=== PATIENT | male | born 1950 ===

== ENCOUNTER 2017-12-17 10:54 | Inpatient (IN) | payer OTHER ==
[2017-12-17 11:06] VITALS: BMI 22.4
[2017-12-17 13:52] LABS: ALB/GLOB RATIO 0.9 (1.0-2.1); ALBUMIN 4.2 g/dL (3.5-5.0); ALT/SGPT 26 U/L (21-72); AST/SGOT 16 U/L (17-59); BLOOD UREA NITROGEN 14 mg/dL (9-20); CALCIUM 9.7 mg/dl (8.6-10.4); GFR AFRICAN-AMERICAN > 60; GFR NON-AFRICAN AMERICAN > 60
[2017-12-17 13:53] LABS: BASO % 0.7 % (0.0-2.0); EOS # 0.2 K/uL (0.0-0.7); EOS % 2.9 % (0.0-4.0); LYMPH # 1.5 K/uL (1.0-4.3); LYMPH % 27.8 % (20.0-40.0); MEAN CORPUSCULAR HEMOGLOBIN 27.1 pg (27.0-31.0); MEAN CORPUSCULAR HGB CONC 33.8 g/dL (33.0-37.0); MEAN PLATELET VOLUME 8.7 fL (7.2-11.7); MONO # 0.5 K/uL (0.0-0.8); MONO % 9.8 % (0.0-10.0); NEUT # 3.3 K/uL (1.8-7.0); NEUT % 58.8 % (50.0-75.0); RBC 5.41 Mil/uL (4.40-5.90); RED CELL DISTRIBUTION WIDTH 14.8 % (11.5-14.5); WHITE BLOOD COUNT 5.6 K/uL (4.8-10.8)
[2017-12-17 13:55] LABS: HEMOGLOBIN 14.6 g/dL (12.0-18.0)
--- NOTE | 2017-12-17 14:26 | CT ---
PROCEDURE: CT HEAD WITHOUT CONTRAST. HISTORY: left arm intermittent weakness, BLE weakness COMPARISON: None available. TECHNIQUE: Axial computed tomography images were obtained through the head/brain without intravenous contrast. Radiation dose: Total exam DLP = 899.48 mGy-cm. This CT exam was performed using one or more of the following dose reduction techniques: Automated exposure control, adjustment of the mA and/or kV according to patient size, and/or use of iterative reconstruction technique. FINDINGS: HEMORRHAGE: No intracranial hemorrhage. BRAIN: No mass effect or edema. There is 6.9 millimeter focal heterogeneous low attenuation at the right basal ganglia coronal radiata image 17 series 2 may represent subacute lacunar infarction. Few bilateral small less than 5 millimeter low-attenuation foci may also represent old lacunar infarction versus chronic microvascular ischemic disease. VENTRICLES: Unremarkable. No hydrocephalus. CALVARIUM: Unremarkable. PARANASAL SINUSES: Mild mucosal thickening in the ethmoid and sphenoid sinuses noted. MASTOID AIR CELLS: Unremarkable as visualized. No inflammatory changes. OTHER FINDINGS: None. IMPRESSION: No evidence of acute intracranial hemorrhage mass effect or midline shift. 7 millimeter heterogeneous low attenuation at the right basal ganglia coronal radiata may represent subacute lacunar infarction. If clinically warranted further assessment by MRI diffusion-weighted images may be obtained.
--- NOTE | 2017-12-17 14:48 | C.PDOC ---
History Of Present Illness 67-year-old male, presents to the emergency department with complaints of swelling to the right fourth toe. Patient was seen by [facility] Dr Yang, who prescribed a cream that patient has been using with relief. The last foot xray was done 1 weeks ago. Secondary complaint is trouble holding onto things with left hand. Patient states he keeps dropping objects. Patient also c/o b/l LE weakness while walking. Denies headache/injury, nausea/vomiting, or any other associate symptoms. No other complaints at this time. Time Seen by Provider: 12/17/17 12:25 Chief Complaint (Nursing): Lower Extremity Problem/Injury History Per: Patient History/Exam Limitations: no limitations Onset/Duration Of Symptoms: Days Current Symptoms Are (Timing): Still Present Past Medical History Reviewed: Historical Data, Nursing Documentation, Vital Signs Vital Signs: Last Vital Signs Temp 98.1 F 12/17/17 11:05 Pulse 66 12/17/17 14:54 Resp 18 12/17/17 14:54 BP 156/64 H 12/17/17 14:54 Pulse Ox 99 12/17/17 16:05 - Medical History PMH: Diabetes, HTN Family History: States: No Known Family Hx - Social History Hx Tobacco Use: Yes Hx Alcohol Use: No Hx Substance Use: No Review Of Systems Except As Marked, All Systems Reviewed And Found Negative. Constitutional: Negative for: Fever, Chills, Weakness Cardiovascular: Negative for: Chest Pain, Palpitations Respiratory: Negative for: Cough, Shortness of Breath Gastrointestinal: Negative for: Nausea, Vomiting Musculoskeletal: Positive for: Other (Right 4th toe swollen. ) Skin: Negative for: Rash Neurological: Negative for: Weakness, Numbness, Headache, Dizziness Physical Exam - Physical Exam Appears: Well, Non-toxic, No Acute Distress Skin: Normal Color, Warm, Dry, No Rash Head: Atraumatic, Normacephalic Eye(s): bilateral: Normal Inspection, PERRL, EOMI Nose: Normal Oral Mucosa: Moist Lips: Normal Appearing Neck: Normal ROM Chest: Symmetrical Cardiovascular: Rhythm Regular, No Murmur Respiratory: Normal Breath Sounds, No Accessory Muscle Use Extremity: Normal ROM, No Tenderness, No Deformity, No Swelling, Other (right 4th toe with swelling, black crust on the bottom of the distal phalanx of the 4th digit, no drainage.) Neurological/Psych: Oriented x3, Normal Speech, Normal Cognition, Normal Cranial Nerves, No Cerebellar Signs, Normal Motor, Normal Sensation, Normal Reflexes, Other (5/5 strength B/L. Patient appears to be dropping his credit card while holding w/ left hand.) ED Course And Treatment - Laboratory Results Result Diagrams: 12/17/17 13:20 12/17/17 13:20 O2 Sat by Pulse Oximetry: 99 - Radiology CXR: Interpreted by [place] CXR Interpretation: Yes: No Acute Disease - CT Scan/US Head CT Other Rad Studies (CT/US): Read By Radiologist, Radiology Report Reviewed CT/US Interpretation: Accession No. : [id number]. Patient Name / ID : SEDA SIERRA / [id number]. Exam Date : 12/17/2017 13:53:22 ( Approved ). Study Comment : Sex / Age : M / 67Y. Creator : Fernando Tran MD. Dictator : Fernando Tran MD. Magazine Journalist : Sales Supervisor : Fernando Tran MD. Approver2 : Report Date : 12/17/2017 14:24:41. My Comment : . PROCEDURE: CT HEAD WITHOUT CONTRAST. HISTORY: left arm intermittent weakness, BLE weakness. COMPARISON: None available. TECHNIQUE: Axial computed tomography images were obtained through the head/brain without intravenous contrast. Radiation dose: Total exam DLP = 899.48 mGy-cm. This CT exam was performed using one or more of the following dose reduction techniques: Automated exposure control, adjustment of the mA and/or kV according to patient size, and/ or use of iterative reconstruction technique. FINDINGS: HEMORRHAGE: No intracranial hemorrhage. BRAIN: No mass effect or edema. There is 6.9 millimeter focal heterogeneous low attenuation at the right basal ganglia coronal radiata image 17 series 2 may represent subacute lacunar infarction. Few bilateral small less than 5 millimeter low-attenuation foci may also represent old lacunar infarction versus chronic microvascular ischemic disease. VENTRICLES: Unremarkable. No hydrocephalus. CALVARIUM: Unremarkable. PARANASAL SINUSES: Mild mucosal thickening in the ethmoid and sphenoid sinuses noted. MASTOID AIR CELLS: Unremarkable as visualized. No inflammatory changes. OTHER FINDINGS: None. IMPRESSION: No evidence of acute intracranial hemorrhage mass effect or midline shift. 7 millimeter heterogeneous low attenuation at the right basal ganglia coronal radiata may represent subacute lacunar infarction. If clinically warranted further assessment by MRI diffusion-weighted images may be obtained. Progress Note: Case was d/w who accepted patient to his service for observation. Medical Decision Making Medical Decision Making: Plan: * CT Head * EKG * Labs * Chest X-Ray * Aspirin * Blood Cultures * UA * Reassess and Disposition Case discussed w/ Dr Saul Escobar, states to admit patient under his service for observation Disposition - Disposition Disposition: HOSPITALIZED Disposition Time: 15:52 Condition: FAIR - Clinical Impression Clinical Impression: Diabetic foot ulcer, Hand numbness, Leg weakness, bilateral - Scribe Statement The provider has reviewed the documentation as recorded by the Scribe (Ruslan Car) All medical record entries made by the Scribe were at my direction and personally dictated by me. I have reviewed the chart and agree that the record accurately reflects my personal performance of the history, physical exam, medical decision making, and the department course for this patient. I have also personally directed, reviewed, and agree with the discharge instructions and disposition.
--- NOTE | 2017-12-17 15:17 | RAD ---
PROCEDURE: CHEST RADIOGRAPH, 1 VIEW HISTORY: admission COMPARISON: None available. FINDINGS: LUNGS: No evidence of focal infiltrate or consolidation in the lungs . PLEURA: No pneumothorax or pleural fluid seen. CARDIOVASCULAR: Normal. OSSEOUS STRUCTURES: No significant abnormalities. VISUALIZED UPPER ABDOMEN: Normal. OTHER FINDINGS: None. IMPRESSION: No active disease.
[2017-12-17 21:31] LABS: URINE BACTERIA RARE (<OCC); URINE BILIRUBIN NEGATIVE (NEGATIVE); URINE BLOOD NEGATIVE (NEGATIVE); URINE CLARITY Clear (Clear); URINE COLOR Yellow (YELLOW); URINE GLUCOSE (UA) 2+ mg/dL (Normal); URINE LEUKOCYTE ESTERASE NEG Leu/uL (Negative); URINE NITRATE NEGATIVE (NEGATIVE); URINE PROTEIN 2+ mg/dL (NEGATIVE); URINE UROBILINOGEN NORMAL mg/dL (0.2-1.0)
--- NOTE | 2017-12-17 21:44 | CP.PCM.HP ---
Past Patient History - Past Medical History & Family History Past Medical History?: Yes - Past Social History Smoking Status: Heavy Smoker > 10 Cigarettes Daily - CARDIAC Hx Hypertension: Yes - HEENT Hx HEENT Problems: Yes Hx Cataracts: Yes (left cataract sx 2013) - ENDOCRINE/METABOLIC Hx Endocrine Disorders: Yes Hx Diabetes Mellitus Type 2: Yes - MUSCULOSKELETAL/RHEUMATOLOGICAL Hx Falls: No - PSYCHIATRIC Hx Substance Use: No - SURGICAL HISTORY Hx Surgeries: Yes (L eye cataract surgery) - ANESTHESIA Hx Anesthesia: Yes Hx Anesthesia Reactions: No Hx Malignant Hyperthermia: No Meds Allergies/Adverse Reactions: Allergies Allergy/AdvReac Type Severity Reaction Status Date / Time No Known Allergies Allergy Verified 12/17/17 11:04 Results - Vital Signs Recent Vital Signs: Last Vital Signs Temp 97.6 F 12/17/17 20:49 Pulse 84 12/17/17 20:49 Resp 17 12/17/17 20:49 BP 150/64 12/17/17 20:49 Pulse Ox 97 12/17/17 20:49 - Labs Result Diagrams: 12/17/17 13:20 12/17/17 13:20 Labs: Laboratory Results - last 24 hr 12/17/17 12/17/17 12/17/17 13:20 13:20 21:17 WBC 5.6 RBC 5.41 Hgb 14.6 D Hct 43.3 MCV 80.0 D MCH 27.1 MCHC 33.8 RDW 14.8 H Plt Count 315 MPV 8.7 Neut % (Auto) 58.8 Lymph % (Auto) 27.8 [place] % (Auto) 9.8 Eos % (Auto) 2.9 Baso % (Auto) 0.7 Neut # (Auto) 3.3 Lymph # (Auto) 1.5 [place] # (Auto) 0.5 Eos # (Auto) 0.2 Baso # (Auto) 0.0 Sodium 136 Potassium 4.1 Chloride 95 L Carbon Dioxide 27 Anion Gap 18 BUN 14 Creatinine 0.7 L Est GFR ( Amer) > 60 Est GFR (Non-Af Amer) > 60 Random Glucose 189 H Calcium 9.7 Total Bilirubin 0.8 AST 16 L ALT 26 Alkaline Phosphatase 52 Total Protein 8.8 H Albumin 4.2 Globulin 4.6 H Albumin/Globulin Ratio 0.9 L Urine Color Yellow Urine Clarity Clear Urine pH 6.0 Ur Specific [place] 1.013 Urine Protein 2+ H Urine Glucose (UA) 2+ H Urine Ketones Negative Urine Blood Negative Urine Nitrate Negative Urine Bilirubin Negative Urine Urobilinogen Normal Ur Leukocyte Esterase Neg Urine WBC (Auto) 1 Urine RBC (Auto) < 1 Urine Bacteria Rare
[2017-12-17] MEDS: Piperacill/Tazo 3.375gm in Dex 3.375 GM/50 ML BAG IVPB SCH (22:01)
[2017-12-17] MEDS: (Novolog) Insulin Aspart, Recombinant 100 u/ml 10 ml vial SC SCH (22:20)
[2017-12-17] MEDS: Vancomycin 1 gm/NS 200 ml 1 GM/200 ML BAG IVPB SCH (22:21)
[2017-12-18] MEDS: Piperacill/Tazo 3.375gm in Dex 3.375 GM/50 ML BAG IVPB SCH ×4 (05:17→20:58)
--- NOTE | 2017-12-18 05:56 | CP.PCM.CON ---
History of Present Illness - History of Present Illness History of Present Illness: Vascular Surgery Dr. Mcadams 67 y/o M w/ PMHx of HTN, DM2, and diabetic neuropathy presents to the ED c/o R foot wound and weakness. Pt states wound began ~1wk ago after a blister formed on his foot from poor shoes. Pt reports intermittent numbness in B/L feet. Pt sees a inspector scales regularly. Pt admits to Hx of diabetic foot ulcers w/ the last occurring ~1yr ago. Secondarily, pt reports sudden weakness of B/L LE and LUE x2days. Pt has never before had weakness. Pt states that he was prompted to come in for evaluation when weakness continued and worsened. Pt denies WISE, CP, SOB, F/C, N/V, D/C. PMHx: see above, cataracts Meds: reviewed in chart NKDA PSHx: cataract SHx: (+)tobacco use. prior EtOH use. denies drug use FHx: noncontributory Review of Systems - Review of Systems All systems: reviewed and no additional remarkable complaints except (see HPI) Past Patient History - Past Medical History & Family History Past Medical History?: Yes - Past Social History Smoking Status: Light Smoker < 10 Cigarettes Daily - CARDIAC Hx Hypertension: Yes - HEENT Hx HEENT Problems: Yes Hx Cataracts: Yes (left cataract sx 2013) - ENDOCRINE/METABOLIC Hx Endocrine Disorders: Yes Hx Diabetes Mellitus Type 2: Yes - MUSCULOSKELETAL/RHEUMATOLOGICAL Hx Falls: No - PSYCHIATRIC Hx Substance Use: No - SURGICAL HISTORY Hx Surgeries: Yes (L eye cataract surgery) - ANESTHESIA Hx Anesthesia: Yes Hx Anesthesia Reactions: No Hx Malignant Hyperthermia: No Meds Allergies/Adverse Reactions: Allergies Allergy/AdvReac Type Severity Reaction Status Date / Time No Known Allergies Allergy Verified 12/17/17 11:04 - Medications Medications: Current Medications Aspirin (Aspirin) 325 mg PO DAILY [facility] Enoxaparin Sodium (Lovenox) 40 mg SC DAILY [facility] Vancomycin/Sodium Chloride (Vancomycin 1 Gm/Ns 200 Ml) 1 gm in 200 mls @ 166.7 mls/hr IVPB Q24H [facility] Stop: 12/22/17 21:46 Last Admin: 12/17/17 22:21 Dose: 166.7 mls/hr Piperacillin Sod/Tazobactam Sod (Zosyn 3.375 Gm Iv Premix) 3.375 gm in 50 mls @ 200 mls/hr IVPB Q6H [facility] Last Admin: 12/18/17 05:17 Dose: 200 mls/hr Insulin Aspart (Novolog) 0 unit SC ACHS [facility] PRN Reason: Protocol Last Admin: 12/17/17 22:20 Dose: Not Given Lisinopril (Zestril) 10 mg PO DAILY [facility] Metformin HCl (Glucophage) 1,000 mg PO BID [facility] Pantoprazole Sodium (Protonix Ec Tab) 40 mg PO DAILY [facility] Rosuvastatin Calcium (Crestor) 10 mg PO HS [facility] Last Admin: 12/17/17 22:32 Dose: 10 mg Physical Exam - Constitutional Appears: Non-toxic, No Acute Distress - Head Exam Head Exam: NORMAL INSPECTION - Eye Exam Eye Exam: Normal appearance - ENT Exam ENT Exam: Mucous Membranes Moist - Respiratory Exam Respiratory Exam: NORMAL BREATHING PATTERN. absent: Accessory Muscle Use, Respiratory Distress - Cardiovascular Exam Cardiovascular Exam: REGULAR RHYTHM. absent: Bradycardia, Tachycardia - GI/Abdominal Exam GI & Abdominal Exam: Soft. absent: Distended - Extremities Exam Extremities exam: Positive for: normal capillary refill, pedal pulses present. Negative for: pedal edema, tenderness Additional comments: adair eschar present on plantar aspect of 4th metatarsal. - Neurological Exam Neurological exam: Alert, Oriented x3 - Psychiatric Exam Psychiatric exam: Normal Affect, Normal Mood - Skin Skin Exam: Dry, Intact, Normal Color, Warm Results - Vital Signs Recent Vital Signs: Last Vital Signs Temp 97.9 F 12/18/17 01:46 Pulse 69 12/18/17 01:46 Resp 20 12/18/17 01:46 BP 144/77 12/18/17 01:46 Pulse Ox 98 12/18/17 01:46 - Labs Result Diagrams: 12/17/17 13:20 12/17/17 13:20 Labs: Laboratory Results - last 24 hr 12/17/17 12/17/17 12/17/17 13:20 13:20 21:17 WBC 5.6 RBC 5.41 Hgb 14.6 D Hct 43.3 MCV 80.0 D MCH 27.1 MCHC 33.8 RDW 14.8 H Plt Count 315 MPV 8.7 Neut % (Auto) 58.8 Lymph % (Auto) 27.8 [place] % (Auto) 9.8 Eos % (Auto) 2.9 Baso % (Auto) 0.7 Neut # (Auto) 3.3 Lymph # (Auto) 1.5 [place] # (Auto) 0.5 Eos # (Auto) 0.2 Baso # (Auto) 0.0 Sodium 136 Potassium 4.1 Chloride 95 L Carbon Dioxide 27 Anion Gap 18 BUN 14 Creatinine 0.7 L Est GFR ( Amer) > 60 Est GFR (Non-Af Amer) > 60 POC Glucose (mg/dL) Random Glucose 189 H Calcium 9.7 Total Bilirubin 0.8 AST 16 L ALT 26 Alkaline Phosphatase 52 Total Protein 8.8 H Albumin 4.2 Globulin 4.6 H Albumin/Globulin Ratio 0.9 L Urine Color Yellow Urine Clarity Clear Urine pH 6.0 Ur Specific [place] 1.013 Urine Protein 2+ H Urine Glucose (UA) 2+ H Urine Ketones Negative Urine Blood Negative Urine Nitrate Negative Urine Bilirubin Negative Urine Urobilinogen Normal Ur Leukocyte Esterase Neg Urine WBC (Auto) 1 Urine RBC (Auto) < 1 Urine Bacteria Rare 12/17/17 22:10 WBC RBC Hgb Hct MCV MCH MCHC RDW Plt Count MPV Neut % (Auto) Lymph % (Auto) [place] % (Auto) Eos % (Auto) Baso % (Auto) Neut # (Auto) Lymph # (Auto) [place] # (Auto) Eos # (Auto) Baso # (Auto) Sodium Potassium Chloride Carbon Dioxide Anion Gap BUN Creatinine Est GFR ( Amer) Est GFR (Non-Af Amer) POC Glucose (mg/dL) 246 H Random Glucose Calcium Total Bilirubin AST ALT Alkaline Phosphatase Total Protein Albumin Globulin Albumin/Globulin Ratio Urine Color Urine Clarity Urine pH Ur Specific [place] Urine Protein Urine Glucose (UA) Urine Ketones Urine Blood Urine Nitrate Urine Bilirubin Urine Urobilinogen Ur Leukocyte Esterase Urine WBC (Auto) Urine RBC (Auto) Urine Bacteria Assessment & Plan - Assessment and Plan (Free Text) Assessment: 67 y/o M w/ diabetic foot wound and sudden-onset weakness - Head CT: possible lacunar infarct - f/u MRI-Head - recommend podiatry consult - LLE duplex - cont medical management Will discuss w/ Dr. Pema Hillman DO PGY2
--- NOTE | 2017-12-18 06:40 | CP.PCM.CON ---
History of Present Illness - History of Present Illness History of Present Illness: CONSULT DICTATED 1 WEEK Hx LOWER EXTREMITIES WEAKNESS EXAM - LEFT HEMIPARESIS NEW Vs OLD DIABETIC NEUROPATHY MRI/ECHO/CAROTID /LABS ASA/STATIN/ARB &DM CONTROL PT Past Patient History - Past Medical History & Family History Past Medical History?: Yes - Past Social History Smoking Status: Light Smoker < 10 Cigarettes Daily - CARDIAC Hx Hypertension: Yes - HEENT Hx HEENT Problems: Yes Hx Cataracts: Yes (left cataract sx 2013) - ENDOCRINE/METABOLIC Hx Endocrine Disorders: Yes Hx Diabetes Mellitus Type 2: Yes - MUSCULOSKELETAL/RHEUMATOLOGICAL Hx Falls: No - PSYCHIATRIC Hx Substance Use: No - SURGICAL HISTORY Hx Surgeries: Yes (L eye cataract surgery) - ANESTHESIA Hx Anesthesia: Yes Hx Anesthesia Reactions: No Hx Malignant Hyperthermia: No Meds Allergies/Adverse Reactions: Allergies Allergy/AdvReac Type Severity Reaction Status Date / Time No Known Allergies Allergy Verified 12/17/17 11:04 - Medications Medications: Current Medications Aspirin (Aspirin) 325 mg PO DAILY [facility] Aspirin (Ecotrin) 81 mg PO DAILY [facility] Enoxaparin Sodium (Lovenox) 40 mg SC DAILY [facility] Vancomycin/Sodium Chloride (Vancomycin 1 Gm/Ns 200 Ml) 1 gm in 200 mls @ 166.7 mls/hr IVPB Q24H [facility] Stop: 12/22/17 21:46 Last Admin: 12/17/17 22:21 Dose: 166.7 mls/hr Piperacillin Sod/Tazobactam Sod (Zosyn 3.375 Gm Iv Premix) 3.375 gm in 50 mls @ 200 mls/hr IVPB Q6H [facility] Last Admin: 12/18/17 05:17 Dose: 200 mls/hr Insulin Aspart (Novolog) 0 unit SC ACHS [facility] PRN Reason: Protocol Last Admin: 12/17/17 22:20 Dose: Not Given Lisinopril (Zestril) 10 mg PO DAILY [facility] Metformin HCl (Glucophage) 1,000 mg PO BID [facility] Pantoprazole Sodium (Protonix Ec Tab) 40 mg PO DAILY [facility] Rosuvastatin Calcium (Crestor) 10 mg PO HS [facility] Last Admin: 12/17/17 22:32 Dose: 10 mg Results - Vital Signs Recent Vital Signs: Last Vital Signs Temp 97.9 F 12/18/17 01:46 Pulse 69 12/18/17 01:46 Resp 20 12/18/17 01:46 BP 144/77 12/18/17 01:46 Pulse Ox 98 12/18/17 01:46 - Labs Result Diagrams: 12/17/17 13:20 12/17/17 13:20 Labs: Laboratory Results - last 24 hr 12/17/17 12/17/17 12/17/17 13:20 13:20 21:17 WBC 5.6 RBC 5.41 Hgb 14.6 D Hct 43.3 MCV 80.0 D MCH 27.1 MCHC 33.8 RDW 14.8 H Plt Count 315 MPV 8.7 Neut % (Auto) 58.8 Lymph % (Auto) 27.8 [place] % (Auto) 9.8 Eos % (Auto) 2.9 Baso % (Auto) 0.7 Neut # (Auto) 3.3 Lymph # (Auto) 1.5 [place] # (Auto) 0.5 Eos # (Auto) 0.2 Baso # (Auto) 0.0 Sodium 136 Potassium 4.1 Chloride 95 L Carbon Dioxide 27 Anion Gap 18 BUN 14 Creatinine 0.7 L Est GFR ( Amer) > 60 Est GFR (Non-Af Amer) > 60 POC Glucose (mg/dL) Random Glucose 189 H Calcium 9.7 Total Bilirubin 0.8 AST 16 L ALT 26 Alkaline Phosphatase 52 Total Protein 8.8 H Albumin 4.2 Globulin 4.6 H Albumin/Globulin Ratio 0.9 L Urine Color Yellow Urine Clarity Clear Urine pH 6.0 Ur Specific [place] 1.013 Urine Protein 2+ H Urine Glucose (UA) 2+ H Urine Ketones Negative Urine Blood Negative Urine Nitrate Negative Urine Bilirubin Negative Urine Urobilinogen Normal Ur Leukocyte Esterase Neg Urine WBC (Auto) 1 Urine RBC (Auto) < 1 Urine Bacteria Rare 12/17/17 22:10 WBC RBC Hgb Hct MCV MCH MCHC RDW Plt Count MPV Neut % (Auto) Lymph % (Auto) [place] % (Auto) Eos % (Auto) Baso % (Auto) Neut # (Auto) Lymph # (Auto) [place] # (Auto) Eos # (Auto) Baso # (Auto) Sodium Potassium Chloride Carbon Dioxide Anion Gap BUN Creatinine Est GFR ( Amer) Est GFR (Non-Af Amer) POC Glucose (mg/dL) 246 H Random Glucose Calcium Total Bilirubin AST ALT Alkaline Phosphatase Total Protein Albumin Globulin Albumin/Globulin Ratio Urine Color Urine Clarity Urine pH Ur Specific [place] Urine Protein Urine Glucose (UA) Urine Ketones Urine Blood Urine Nitrate Urine Bilirubin Urine Urobilinogen Ur Leukocyte Esterase Urine WBC (Auto) Urine RBC (Auto) Urine Bacteria
[2017-12-18 07:56] LABS: FREE T4 1.19 ng/dL (0.78-2.19)
[2017-12-18] MEDS: (Novolog) Insulin Aspart, Recombinant 100 u/ml 10 ml vial SC SCH ×4 (08:17→22:09)
[2017-12-18 09:14] LABS: FOLATE 10.6 ng/mL
[2017-12-18] MEDS: Enoxaparin 40 mg Syringe SC SCH (09:47)
[2017-12-18] MEDS ORDERED: Pantoprazole 40 mg EC Tab PO SCH (10:00)
--- NOTE | 2017-12-18 10:36 | CON ---
DATE: 12/17/2017 REASON FOR CONSULTATION: Transient ischemic attack. CHIEF COMPLAINT: The patient was brought into [facility] with history of 1-week lower extremity weakness. From neurological point of view, I was called in to evaluate his weakness. HISTORY OF PRESENT ILLNESS: Mr. Jesus Gill is a 67-year-old right-handed Tajik-speaking male presenting with about a week history of lower extremity weakness. He could not able to quantify one is more than the other. He has been seeing the foot doctor for his diabetic related peripheral vascular disease. He denies any weakness of his arm. No history of neck pain. No history of back pain. No history of headache. No history of visual or bulbar dysfunction. He was admitted 5 years ago for similar complaints in the past. Lately, he has been taking medications regularly to control his diabetes, high blood pressure, and cholesterol. PAST MEDICAL HISTORY: Diabetes mellitus, hypertension. PERSONAL HISTORY: He smokes. No history of alcohol use. ALLERGIES: NO KNOWN ALLERGIES. REVIEW OF SYSTEMS: A 12-point system being reviewed. From neuro, new weakness of his legs. HOME MEDICATIONS: Crestor, metformin, Lovenox, NovoLog, Protonix, vancomycin, piperacillin. PHYSICAL EXAMINATION: VITAL SIGNS: Blood pressure 144/77, mean artery pressure of 99, respiratory rate 18, temperature 97.9, and pulse rate 69 and regular. NECK: Supple. No carotid bruits. HEART: Sounds regular. CHEST: Fair air entry. EXTREMITIES: No edema in legs. NEUROLOGIC EXAMINATION: MENTAL STATUS EXAMINATION: He is awake, alert, oriented to person, place, and time. Speech is clear. Naming, repetition, fluency, comprehension all within normal. No sign of suicidal ideation. No sign of depression. No sign of confabulation. CRANIAL NERVE EXAMINATION: Visual field intact. Pupils reactive to light. Extraocular movement normal. No nystagmus. No facial sensory deficit. Significant facial asymmetry manifesting as flattening of the left nasolabial fold. Tongue is moist and midline. MOTOR EXAMINATION: On outstretched hand with eyes closed, slightly drift noted on his left upper extremity on eyes closed. No tremor. He could able to lift both lower extremities against gravity, however, similar weakness as arm noted on his left leg to compare with the right leg. Deep tendon reflexes are absent. Plantars are upgoing on his left side; right side, it is downgoing. SENSORY EXAMINATION: No cortical sensory loss. Significant bilateral distal symmetric sensorimotor neuropathy secondary to his underlying diabetes mellitus which is uncontrolled. COORDINATION: Mild [id number] test dysmetria noted on the left side to compare with the right side. The gait is deferred at this time. WORKUP: CT of the head has been reviewed. 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 EKG, normal sinus rhythm. BLOOD WORKUP: WBC 5.6, hemoglobin 14.6, hematocrit 43.3, platelets 315. Sodium 136, potassium of 4.1, chloride 95, bicarbonate 27, BUN 14, creatinine 0.7, GFR more than 60, glucose 246, calcium 9.7, AST 16, ALT 26. Urine shows 2+ proteinuria and glycosuria. CONCLUSION: Mr. Jesus Gill has been presenting with as per neurological examination, 1. Left mild hemiparesis which is secondary to his small vessel ischemic process affecting the right subcortical dysfunction. This is probably new versus old. 2. Bilateral distal symmetric sensorimotor neuropathy. RECOMMENDATIONS: Aspirin 81 mg with angiotensin receptor blockers and statin. The patient should be get out of the bed and physical therapy should be started. Strict diabetic control, blood pressure control had been discussed with the patient. Abstinence from smoking also discussed with the patient. If the patient is stable for next 24-hour period, the patient can be discharged and should have followup visit as an outpatient. Sven Berg MD
--- NOTE | 2017-12-18 10:47 | MRI ---
PROCEDURE: MRI of the brain dated 12/18/2017. HISTORY: NEW ISCHEMIC PROCESS COMPARISON: Comparison made with prior CT scan of the brain dated 12/17/2014. TECHNIQUE: Multiplanar, multisequence MR images of the brain were obtained without intravenous contrast enhancement. FINDINGS: HEMORRHAGE: No acute parenchymal, subarachnoid or extra-axial hemorrhage. No evidence of hemosiderin deposition identified on gradient echo weighted sequence. DWI: Small acute infarct changes seen in the right posterior superior basal ganglia/ coronal radiata junction abutting the posterior margin right lateral ventricular surface. BRAIN PARENCHYMA: Mild chronic periventricular white matter ischemic changes with multiple tiny chronic appearing lacunar type infarcts scattered about the deep and subcortical white matter of both cerebral hemispheres. . Few additional small chronic bilateral basal nuclei lacunar type infarcts are present. Note made of numerous dilated perivascular spaces within both cerebral hemispheres including basal nuclei. Note that such changes have been seen and described in cases of vascular dementia. Clinic correlation recommended. Mild generalized volume loss. VENTRICLES: No obstructive hydrocephalus. CRANIUM: Calvarium appears unremarkable. ORBITS: Changes of bilateral cataract surgery again noted. PARANASAL SINUSES/MASTOIDS: Mild mucosal thickening seen within both maxillary with mild to moderate mucosal thickening in several ethmoid air cells extending superiorly into the ethmoid air complex. Questionable small fluid level versus mucosal thickening right chamber sphenoid sinus. VASCULAR SYSTEM: Skull base flow voids intact. OTHER FINDINGS: None. IMPRESSION: Small acute infarct changes seen in the right posterior superior basal ganglia/ coronal radiata junction abutting the posterior margin right lateral ventricular surface. . Mild chronic periventricular white matter ischemic changes with multiple tiny chronic appearing lacunar type infarcts scattered about the deep and subcortical white matter of both cerebral hemispheres. . Few additional small chronic bilateral basal nuclei lacunar type infarcts are present. No acute intracranial hemorrhage. Mild generalized volume loss. Findings discussed with Dr. Berg at approximately 10:30 a.m. with written down and read back verification.
[2017-12-18 11:56] LABS: BASO # 0.1 K/uL (0.0-0.2); EOS # 0.2 K/uL (0.0-0.7); EOS % 3.5 % (0.0-4.0); LYMPH # 1.4 K/uL (1.0-4.3); LYMPH % 25.5 % (20.0-40.0); MEAN CELL VOLUME 80.3 fL (80.0-94.0); MEAN CORPUSCULAR HEMOGLOBIN 27.3 pg (27.0-31.0); MEAN PLATELET VOLUME 8.4 fL (7.2-11.7); MONO # 0.5 K/uL (0.0-0.8); MONO % 9.4 % (0.0-10.0); NEUT # 3.4 K/uL (1.8-7.0); NEUT % 60.6 % (50.0-75.0); RBC 4.77 Mil/uL (4.40-5.90); RED CELL DISTRIBUTION WIDTH 14.5 % (11.5-14.5); WHITE BLOOD COUNT 5.6 K/uL (4.8-10.8)
[2017-12-18 12:13] LABS: ALBUMIN 3.5 g/dL (3.5-5.0); ALT/SGPT 20 U/L (21-72); AST/SGOT 15 U/L (17-59); BLOOD UREA NITROGEN 15 mg/dL (9-20); CALCIUM 9.1 mg/dl (8.6-10.4); GFR AFRICAN-AMERICAN > 60; GFR NON-AFRICAN AMERICAN > 60
--- NOTE | 2017-12-18 12:54 | CP.PCM.PN ---
Subjective - Date & Time of Evaluation Date of Evaluation: 12/18/17 Time of Evaluation: 12:45 - Subjective Subjective: PROGRESS NOTE ATTENDING: TERRELL ENGL[place] Pt seen and examined at bedside. No acute distress. No events overnight. Pt has minimal pain. Consulting podiatry. No fevers, chills, vomiting, diarrhea Objective - Vital Signs/Intake and Output Vital Signs (last 24 hours): Temp Pulse Resp BP Pulse Ox 97.2 F L 78 20 165/78 H 98 12/18/17 08:04 12/18/17 08:04 12/18/17 08:04 12/18/17 08:04 12/18/17 08:04 - Medications Medications: Current Medications Aspirin (Ecotrin) 81 mg PO DAILY [facility] Last Admin: 12/18/17 09:46 Dose: 81 mg Enoxaparin Sodium (Lovenox) 40 mg SC DAILY [facility] Last Admin: 12/18/17 09:47 Dose: 40 mg Vancomycin/Sodium Chloride (Vancomycin 1 Gm/Ns 200 Ml) 1 gm in 200 mls @ 166.7 mls/hr IVPB Q24H [facility] Stop: 12/22/17 21:46 Last Admin: 12/17/17 22:21 Dose: 166.7 mls/hr Piperacillin Sod/Tazobactam Sod (Zosyn 3.375 Gm Iv Premix) 3.375 gm in 50 mls @ 200 mls/hr IVPB Q6H [facility] Last Admin: 12/18/17 09:49 Dose: 200 mls/hr Insulin Aspart (Novolog) 0 unit SC ACHS [facility] PRN Reason: Protocol Last Admin: 12/18/17 12:17 Dose: 2 unit Lisinopril (Zestril) 10 mg PO DAILY [facility] Last Admin: 12/18/17 09:46 Dose: 10 mg Metformin HCl (Glucophage) 1,000 mg PO BID [facility] Last Admin: 12/18/17 09:46 Dose: 1,000 mg Pantoprazole Sodium (Protonix Ec Tab) 40 mg PO DAILY [facility] Last Admin: 12/18/17 09:46 Dose: 40 mg Rosuvastatin Calcium (Crestor) 10 mg PO HS [facility] Last Admin: 12/17/17 22:32 Dose: 10 mg - Labs Labs: 12/18/17 11:48 12/18/17 11:48 - Constitutional Appears: Non-toxic, No Acute Distress - Head Exam Head Exam: ATRAUMATIC, NORMAL INSPECTION, NORMOCEPHALIC - Eye Exam Eye Exam: EOMI - ENT Exam ENT Exam: Mucous Membranes Moist - Neck Exam Neck Exam: Full ROM, Normal Inspection - Respiratory Exam Respiratory Exam: NORMAL BREATHING PATTERN. absent: Respiratory Distress - Cardiovascular Exam Cardiovascular Exam: +S1, +S2 - GI/Abdominal Exam GI & Abdominal Exam: Soft, Normal Bowel Sounds. absent: Tenderness - Extremities Exam Extremities Exam: Tenderness. absent: Full ROM, Normal Inspection Additional comments: some tenderness and swelling digit - Neurological Exam Neurological Exam: Alert, Awake, Oriented x3 - Psychiatric Exam Psychiatric exam: Normal Affect, Normal Mood - Skin Skin Exam: Dry, Intact, Normal Color, Warm Assessment and Plan - Assessment and Plan (Free Text) Assessment: This is a 67 yo male with 1. R/O diabetic foot ulcer -asa 81 daily -arterial duplex pending -venous duplex pending- -carotid duplex pending -continue IV vanco -continue IV zosyn 2. hx of HLD -continue crestor 3. hx of DM -continue metformin -continue lisinopril -continue ISS 4. GI/DVT ppx -lovenox -protonix dw DR eng[place]
--- NOTE | 2017-12-18 13:38 | CP.PCM.CON ---
History of Present Illness - History of Present Illness History of Present Illness: Podiatry Consult note for Dr. Gordon 67 year old male PMHx including HTN, DM2, and diabetic neuropathy presents to the was seen at bedside with attending, Dr. Gordon for foot wounds. 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 He currently denies any pain to his feet. He denies any n/v/f/c/sob/cp. Past Patient History - Past Medical History & Family History Past Medical History?: Yes - Past Social History Smoking Status: Light Smoker < 10 Cigarettes Daily - CARDIAC Hx Hypertension: Yes - HEENT Hx HEENT Problems: Yes Hx Cataracts: Yes (left cataract sx 2013) - ENDOCRINE/METABOLIC Hx Endocrine Disorders: Yes Hx Diabetes Mellitus Type 2: Yes - MUSCULOSKELETAL/RHEUMATOLOGICAL Hx Falls: No - PSYCHIATRIC Hx Substance Use: No - SURGICAL HISTORY Hx Surgeries: Yes (L eye cataract surgery) - ANESTHESIA Hx Anesthesia: Yes Hx Anesthesia Reactions: No Hx Malignant Hyperthermia: No Meds Allergies/Adverse Reactions: Allergies Allergy/AdvReac Type Severity Reaction Status Date / Time No Known Allergies Allergy Verified 12/17/17 11:04 - Medications Medications: Current Medications Aspirin (Ecotrin) 81 mg PO DAILY [facility] Last Admin: 12/18/17 09:46 Dose: 81 mg Enoxaparin Sodium (Lovenox) 40 mg SC DAILY [facility] Last Admin: 12/18/17 09:47 Dose: 40 mg Vancomycin/Sodium Chloride (Vancomycin 1 Gm/Ns 200 Ml) 1 gm in 200 mls @ 166.7 mls/hr IVPB Q24H [facility] Stop: 12/22/17 21:46 Last Admin: 12/17/17 22:21 Dose: 166.7 mls/hr Piperacillin Sod/Tazobactam Sod (Zosyn 3.375 Gm Iv Premix) 3.375 gm in 50 mls @ 200 mls/hr IVPB Q6H [facility] Last Admin: 12/18/17 09:49 Dose: 200 mls/hr Insulin Aspart (Novolog) 0 unit SC ACHS [facility] PRN Reason: Protocol Last Admin: 12/18/17 12:17 Dose: 2 unit Lisinopril (Zestril) 10 mg PO DAILY [facility] Last Admin: 12/18/17 09:46 Dose: 10 mg Metformin HCl (Glucophage) 1,000 mg PO BID [facility] Last Admin: 12/18/17 09:46 Dose: 1,000 mg Pantoprazole Sodium (Protonix Ec Tab) 40 mg PO DAILY [facility] Last Admin: 12/18/17 09:46 Dose: 40 mg Rosuvastatin Calcium (Crestor) 10 mg PO HS [facility] Last Admin: 12/17/17 22:32 Dose: 10 mg Physical Exam - Constitutional Appears: Well, Non-toxic, No Acute Distress - Extremities Exam Additional comments: lower extremity focused exam: Vasc:DP and PT pulses palpable 1/4 b/l. Skin temperature warm to cool from proximal to distal b/l, no edema noted Derm:necrotic eschar noted to the distalplantar aspect of the right 4th digit, no drainage, no probe to bone, no erythema no malodor noted. callus noted to the left 3rd digit Neuro: Gross sensation diminished b/l Ortho: no tenderness on palpation to feet b/l - Neurological Exam Neurological exam: Alert, Oriented x3 - Psychiatric Exam Psychiatric exam: Normal Affect, Normal Mood Results - Vital Signs Recent Vital Signs: Last Vital Signs Temp 97.2 F L 12/18/17 08:04 Pulse 78 12/18/17 08:04 Resp 20 12/18/17 08:04 BP 165/78 H 12/18/17 08:04 Pulse Ox 98 12/18/17 08:04 - Labs Result Diagrams: 12/18/17 11:48 12/18/17 11:48 Labs: Laboratory Results - last 24 hr 12/17/17 12/17/17 12/17/17 13:20 13:20 21:17 WBC 5.6 RBC 5.41 Hgb 14.6 D Hct 43.3 MCV 80.0 D MCH 27.1 MCHC 33.8 RDW 14.8 H Plt Count 315 MPV 8.7 Neut % (Auto) 58.8 Lymph % (Auto) 27.8 Wilson % (Auto) 9.8 Eos % (Auto) 2.9 Baso % (Auto) 0.7 Neut # (Auto) 3.3 Lymph # (Auto) 1.5 Wilson # (Auto) 0.5 Eos # (Auto) 0.2 Baso # (Auto) 0.0 ESR Sodium 136 Potassium 4.1 Chloride 95 L Carbon Dioxide 27 Anion Gap 18 BUN 14 Creatinine 0.7 L Est GFR ( Amer) > 60 Est GFR (Non-Af Amer) > 60 POC Glucose (mg/dL) Random Glucose 189 H Hemoglobin A1c Calcium 9.7 Total Bilirubin 0.8 AST 16 L ALT 26 Alkaline Phosphatase 52 C-React Prot High Sens Total Protein 8.8 H Albumin 4.2 Globulin 4.6 H Albumin/Globulin Ratio 0.9 L Triglycerides Cholesterol LDL Cholesterol Direct HDL Cholesterol Vitamin B12 Folate Homocysteine Free T4 TSH 3rd Generation Urine Color Yellow Urine Clarity Clear Urine pH 6.0 Ur Specific [place] 1.013 Urine Protein 2+ H Urine Glucose (UA) 2+ H Urine Ketones Negative Urine Blood Negative Urine Nitrate Negative Urine Bilirubin Negative Urine Urobilinogen Normal Ur Leukocyte Esterase Neg Urine WBC (Auto) 1 Urine RBC (Auto) < 1 Urine Bacteria Rare 12/17/17 12/18/17 12/18/17 22:10 07:11 07:11 WBC RBC Hgb Hct MCV MCH MCHC RDW Plt Count MPV Neut % (Auto) Lymph % (Auto) Wilson % (Auto) Eos % (Auto) Baso % (Auto) Neut # (Auto) Lymph # (Auto) Wilson # (Auto) Eos # (Auto) Baso # (Auto) ESR 20 H Sodium Potassium Chloride Carbon Dioxide Anion Gap BUN Creatinine Est GFR ( Amer) Est GFR (Non-Af Amer) POC Glucose (mg/dL) 246 H Random Glucose Hemoglobin A1c Calcium Total Bilirubin AST ALT Alkaline Phosphatase C-React Prot High Sens 1.74 Total Protein Albumin Globulin Albumin/Globulin Ratio Triglycerides Cholesterol LDL Cholesterol Direct HDL Cholesterol Vitamin B12 Folate Homocysteine Free T4 1.19 TSH 3rd Generation 1.92 Urine Color Urine Clarity Urine pH Ur Specific [place] Urine Protein Urine Glucose (UA) Urine Ketones Urine Blood Urine Nitrate Urine Bilirubin Urine Urobilinogen Ur Leukocyte Esterase Urine WBC (Auto) Urine RBC (Auto) Urine Bacteria 12/18/17 12/18/17 12/18/17 07:11 07:11 07:20 WBC RBC Hgb Hct MCV MCH MCHC RDW Plt Count MPV Neut % (Auto) Lymph % (Auto) Wilson % (Auto) Eos % (Auto) Baso % (Auto) Neut # (Auto) Lymph # (Auto) Wilson # (Auto) Eos # (Auto) Baso # (Auto) ESR Sodium Potassium Chloride Carbon Dioxide Anion Gap BUN Creatinine Est GFR ( Amer) Est GFR (Non-Af Amer) POC Glucose (mg/dL) 193 H Random Glucose Hemoglobin A1c 9.5 H Calcium Total Bilirubin AST ALT Alkaline Phosphatase C-React Prot High Sens Total Protein Albumin Globulin Albumin/Globulin Ratio Triglycerides 155 H Cholesterol 187 LDL Cholesterol Direct 146 H HDL Cholesterol 24 L Vitamin B12 263 Folate 10.6 Homocysteine 9.8 Free T4 TSH 3rd Generation Urine Color Urine Clarity Urine pH Ur Specific [place] Urine Protein Urine Glucose (UA) Urine Ketones Urine Blood Urine Nitrate Urine Bilirubin Urine Urobilinogen Ur Leukocyte Esterase Urine WBC (Auto) Urine RBC (Auto) Urine Bacteria 12/18/17 12/18/17 12/18/17 10:58 11:48 11:48 WBC 5.6 RBC 4.77 Hgb 13.0 Hct 38.3 MCV 80.3 MCH 27.3 MCHC 34.0 RDW 14.5 Plt Count 275 MPV 8.4 Neut % (Auto) 60.6 Lymph % (Auto) 25.5 Wilson % (Auto) 9.4 Eos % (Auto) 3.5 Baso % (Auto) 1.0 Neut # (Auto) 3.4 Lymph # (Auto) 1.4 Wilson # (Auto) 0.5 Eos # (Auto) 0.2 Baso # (Auto) 0.1 ESR Sodium 133 Potassium 4.2 Chloride 97 L Carbon Dioxide 26 Anion Gap 14 BUN 15 Creatinine 0.8 Est GFR ( Amer) > 60 Est GFR (Non-Af Amer) > 60 POC Glucose (mg/dL) 212 H Random Glucose 235 H Hemoglobin A1c Calcium 9.1 Total Bilirubin 0.5 AST 15 L ALT 20 L D Alkaline Phosphatase 45 C-React Prot High Sens Total Protein 7.3 Albumin 3.5 Globulin 3.7 Albumin/Globulin Ratio 1.0 Triglycerides Cholesterol LDL Cholesterol Direct HDL Cholesterol Vitamin B12 Folate Homocysteine Free T4 TSH 3rd Generation Urine Color Urine Clarity Urine pH Ur Specific [place] Urine Protein Urine Glucose (UA) Urine Ketones Urine Blood Urine Nitrate Urine Bilirubin Urine Urobilinogen Ur Leukocyte Esterase Urine WBC (Auto) Urine RBC (Auto) Urine Bacteria Assessment & Plan - Assessment and Plan (Free Text) Assessment: 67 year old male with diabetic foot wound Plan: patient examined and evaluated with attending, Dr. Gordon chart, labs, vitals reviewed;afebrile, WBC 5.6 right foot dressed with xeroform, DSD bactroban ordered- to be applied to right 4th digit at dressing changes bone scan ordered to rule out OM of right 4th digit podiatry will continue to follow patient while in house
--- NOTE | 2017-12-18 15:20 | CP.PCM.CON ---
History of Present Illness - History of Present Illness History of Present Illness: 67 y/o M w/ PMHx of HTN, DM2, and diabetic neuropathy presents to the ED c/o R foot wound and weakness. Pt states wound began ~1wk ago after a blister formed on his foot from poor shoes. Pt reports intermittent numbness in B/L feet. Pt sees a c java developer regularly. Pt admits to Hx of diabetic foot ulcers w/ the last occurring ~1yr ago. Secondarily, pt reports sudden weakness of B/L LE and LUE x2days. Pt has never before had weakness. Pt states that he was prompted to come in for evaluation when weakness continued and worsened. Pt denies WISE, CP, SOB, F/C, N/V, D/C. ID consulted for possible OM PMHx: see above, cataracts Meds: reviewed in chart NKDA PSHx: cataract SHx: (+)tobacco use. prior EtOH use. denies drug use FHx: noncontributory Review of Systems - Review of Systems All systems: reviewed and no additional remarkable complaints except - Constitutional Constitutional: As Per HPI - EENT Eyes: absent: As Per HPI, Blind Spots, Blurred Vision, Change in Vision, Decreased Night Vision, Diplopia, Discharge, Dry Eye, Exophthalmos, Floaters, Irritation, Itchy Eyes, Loss of Peripheral Vision, Pain, Photophobia, Requires Corrective Lenses, Sees Flashes, Spots in Vision, Tunnel Vision, Other Visual Disturbances, Loss of Vision, Other Ears: absent: As Per HPI, Decreased Hearing, Ear Discharge, Ear Pain, Tinnitus, Abnormal Hearing, Disequilibrium, Dizziness, Other Nose/Mouth/Throat: absent: As Per HPI, Epistaxis, Nasal Congestion, Nasal Discharge, Nasal Obstruction, Nasal Trauma, Nose Pain, Post Nasal Drip, Sinus Pain, Sinus Pressure, Bleeding Gums, Change in Voice, Dental Pain, Dry Mouth, Dysphagia, Halitosis, Hoarsness, Lip Swelling, Mouth Lesions, Mouth Pain, Odynophagia, Sore Throat, Throat Swelling, Tongue Swelling, Facial Pain, Neck Pain, Neck Mass, Other - Cardiovascular Cardiovascular: absent: As Per HPI, Acrocyanosis, Chest Pain, Chest Pain at Rest , Chest Pain with Activity, Claudication, Diaphoresis, Dyspnea, Dyspnea on Exertion, Edema, Irregular Heart Rhythm, Pain Radiating to Arm/Neck/Jaw, Leg Edema, Leg Ulcers, Lightheadedness, Orthopnea, Palpitations, Paroxysmal Nocturnal Dyspnea, Pedal Edema, Radiating Pain, Rapid Heart Rate, Slow Heart Rate, Syncope, Other - Respiratory Respiratory: absent: As Per HPI, Cough, Dyspnea, Hemoptysis, Dyspnea on Exertion , Wheezing, Snoring, Stridor, Pain on Inspiration, Chest Congestion, Excessive Mucous Production, Change in Mucous Color, Pain with Coughing, Other - Gastrointestinal Gastrointestinal: absent: As Per HPI, Abdominal Pain, Belching, Bloating, Change in Bowel Habits, Change in Stool Character, Coffee Ground Emesis, Constipation, Cramping, Diarrhea, Dyspepsia, Dysphagia, Early Satiety, Excessive Flatus, Fecal Incontinence, Heartburn, Hematemesis, Hematochezia, Loose Stools, Melena, Nausea, Odynophagia, Temesmus, Vomiting, Other - Genitourinary Genitourinary: absent: As Per HPI, Change in Urinary Stream, Difficulty Urinating, Dysuria, Flank Pain, Hematuria, Pyuria, Nocturia, Urinary Incontinence, Urinary Frequency, Urinary Hesitance, Urinary Urgency, Voiding Freq/Small Amts, Freq UTI, Hx Renal/Bladder Calculi, Hx /Renal Surgery, Bladder Distension, Other - Musculoskeletal Musculoskeletal: As Per HPI - Integumentary Integumentary: As Per HPI, Skin Pain, Wounds - Neurological Neurological: absent: As Per HPI, Abnormal Gait, Abnormal Hearing, Abnormal Movements, Abnormal Speech, Behavioral Changes, Burning Sensations, Confusion, Convulsions, Disequilibrium, Dizziness, Numbness, Focal Weakness, Frequent Falls , Headaches, Lack of Coordination, Loss of Vision, Memory Loss, Paresthesias, Radicular Pain, Restless Legs, Sensory Deficit, Syncope, Tingling, Tremor, Vertigo, Weakness, Other Visual Disturbances, Other - Psychiatric Psychiatric: absent: As Per HPI, Abnormal Sleep Pattern, Anhedonia, Anxiety, Auditory Hallucinations, Behavioral Changes, Change in Appetite, Change in Libido, Confusion, Depression, Difficulty Concentrating, Hallucinations, Homicidal Ideation, Hopelessness, Irritability, Memory Loss, Mood Swings, Panic Attacks, Paranoia, Suicidal Ideation, Visual Hallucinations, Tactile Hallucinations, Other - Endocrine Endocrine: absent: As Per HPI, Change in Body Appearance, Change in Libido, Cold Intolorance, Deepening of Voice, Excessive Sweating, Fatigue, Flushing, Heat Intolorance, Increase in Ring/Shoe/Hat Size, Palpitations, Polydipsia, Polyphagia, Polyuria, Other - Hematologic/Lymphatic Hematologic: absent: As Per HPI, Easy Bleeding, Easy Bruising, Lymphadenopathy, Other Past Patient History - Past Medical History & Family History Past Medical History?: Yes - Past Social History Smoking Status: Light Smoker < 10 Cigarettes Daily - CARDIAC Hx Hypertension: Yes - HEENT Hx HEENT Problems: Yes Hx Cataracts: Yes (left cataract sx 2013) - ENDOCRINE/METABOLIC Hx Endocrine Disorders: Yes Hx Diabetes Mellitus Type 2: Yes - MUSCULOSKELETAL/RHEUMATOLOGICAL Hx Falls: No - PSYCHIATRIC Hx Substance Use: No - SURGICAL HISTORY Hx Surgeries: Yes (L eye cataract surgery) - ANESTHESIA Hx Anesthesia: Yes Hx Anesthesia Reactions: No Hx Malignant Hyperthermia: No Meds Allergies/Adverse Reactions: Allergies Allergy/AdvReac Type Severity Reaction Status Date / Time No Known Allergies Allergy Verified 12/17/17 11:04 - Medications Medications: Current Medications Aspirin (Ecotrin) 81 mg PO DAILY [facility] Last Admin: 12/18/17 09:46 Dose: 81 mg Enoxaparin Sodium (Lovenox) 40 mg SC DAILY [facility] Last Admin: 12/18/17 09:47 Dose: 40 mg Vancomycin/Sodium Chloride (Vancomycin 1 Gm/Ns 200 Ml) 1 gm in 200 mls @ 166.7 mls/hr IVPB Q24H [facility] Stop: 12/22/17 21:46 Last Admin: 12/17/17 22:21 Dose: 166.7 mls/hr Piperacillin Sod/Tazobactam Sod (Zosyn 3.375 Gm Iv Premix) 3.375 gm in 50 mls @ 200 mls/hr IVPB Q6H [facility] Last Admin: 12/18/17 09:49 Dose: 200 mls/hr Insulin Aspart (Novolog) 0 unit SC ACHS [facility] PRN Reason: Protocol Last Admin: 12/18/17 12:17 Dose: 2 unit Lisinopril (Zestril) 10 mg PO DAILY [facility] Last Admin: 12/18/17 09:46 Dose: 10 mg Metformin HCl (Glucophage) 1,000 mg PO BID [facility] Last Admin: 12/18/17 09:46 Dose: 1,000 mg Mupirocin (Bactroban Ointment) 1 gm TOP BID [facility] Pantoprazole Sodium (Protonix Ec Tab) 40 mg PO DAILY [facility] Last Admin: 12/18/17 09:46 Dose: 40 mg Rosuvastatin Calcium (Crestor) 10 mg PO HS [facility] Last Admin: 12/17/17 22:32 Dose: 10 mg Physical Exam - Constitutional Appears: Non-toxic, Chronically Ill - Head Exam Head Exam: NORMOCEPHALIC - Eye Exam Eye Exam: PERRL. absent: Scleral icterus - ENT Exam ENT Exam: Mucous Membranes Dry, Normal External Ear Exam - Neck Exam Neck exam: Negative for: Lymphadenopathy - Respiratory Exam Respiratory Exam: Decreased Breath Sounds, Clear to Auscultation Bilateral - Cardiovascular Exam Cardiovascular Exam: REGULAR RHYTHM, +S1, +S2 - GI/Abdominal Exam GI & Abdominal Exam: Diminished Bowel Sounds, Soft. absent: Tenderness - Rectal Exam Rectal Exam: Deferred - Exam Exam: NORMAL INSPECTION - Extremities Exam Extremities exam: Positive for: pedal edema, tenderness, pedal pulses present. Negative for: calf tenderness Additional comments: lower extremity focused exam: Vasc:DP and PT pulses palpable 1/4 b/l. Skin temperature warm to cool from proximal to distal b/l, no edema noted Derm:necrotic eschar noted to the distalplantar aspect of the right 4th digit, no drainage, no probe to bone, no erythema no malodor noted. callus noted to the left 3rd digit Neuro: Gross sensation diminished b/l Ortho: no tenderness on palpation to feet b/l - Back Exam Back exam: absent: CVA tenderness (L), CVA tenderness (R) - Neurological Exam Neurological exam: Alert, CN II-XII Intact, Oriented x3, Reflexes Normal - Psychiatric Exam Psychiatric exam: Normal Mood - Skin Skin Exam: Dry, Intact Results - Vital Signs Recent Vital Signs: Last Vital Signs Temp 97.2 F L 12/18/17 08:04 Pulse 78 12/18/17 08:04 Resp 20 12/18/17 08:04 BP 165/78 H 12/18/17 08:04 Pulse Ox 98 12/18/17 08:04 - Labs Result Diagrams: 12/18/17 11:48 12/18/17 11:48 Labs: Laboratory Results - last 24 hr 12/17/17 12/17/17 12/18/17 21:17 22:10 07:11 WBC RBC Hgb Hct MCV MCH MCHC RDW Plt Count MPV Neut % (Auto) Lymph % (Auto) Henry % (Auto) Eos % (Auto) Baso % (Auto) Neut # (Auto) Lymph # (Auto) Henry # (Auto) Eos # (Auto) Baso # (Auto) ESR 20 H Sodium Potassium Chloride Carbon Dioxide Anion Gap BUN Creatinine Est GFR ( Amer) Est GFR (Non-Af Amer) POC Glucose (mg/dL) 246 H Random Glucose Hemoglobin A1c Calcium Total Bilirubin AST ALT Alkaline Phosphatase C-React Prot High Sens Total Protein Albumin Globulin Albumin/Globulin Ratio Triglycerides Cholesterol LDL Cholesterol Direct HDL Cholesterol Vitamin B12 Folate Homocysteine Free T4 TSH 3rd Generation Urine Color Yellow Urine Clarity Clear Urine pH 6.0 Ur Specific [place] 1.013 Urine Protein 2+ H Urine Glucose (UA) 2+ H Urine Ketones Negative Urine Blood Negative Urine Nitrate Negative Urine Bilirubin Negative Urine Urobilinogen Normal Ur Leukocyte Esterase Neg Urine WBC (Auto) 1 Urine RBC (Auto) < 1 Urine Bacteria Rare 12/18/17 12/18/17 12/18/17 07:11 07:11 07:11 WBC RBC Hgb Hct MCV MCH MCHC RDW Plt Count MPV Neut % (Auto) Lymph % (Auto) Henry % (Auto) Eos % (Auto) Baso % (Auto) Neut # (Auto) Lymph # (Auto) Henry # (Auto) Eos # (Auto) Baso # (Auto) ESR Sodium Potassium Chloride Carbon Dioxide Anion Gap BUN Creatinine Est GFR ( Amer) Est GFR (Non-Af Amer) POC Glucose (mg/dL) Random Glucose Hemoglobin A1c 9.5 H Calcium Total Bilirubin AST ALT Alkaline Phosphatase C-React Prot High Sens 1.74 Total Protein Albumin Globulin Albumin/Globulin Ratio Triglycerides 155 H Cholesterol 187 LDL Cholesterol Direct 146 H HDL Cholesterol 24 L Vitamin B12 263 Folate 10.6 Homocysteine 9.8 Free T4 1.19 TSH 3rd Generation 1.92 Urine Color Urine Clarity Urine pH Ur Specific [place] Urine Protein Urine Glucose (UA) Urine Ketones Urine Blood Urine Nitrate Urine Bilirubin Urine Urobilinogen Ur Leukocyte Esterase Urine WBC (Auto) Urine RBC (Auto) Urine Bacteria 12/18/17 12/18/17 12/18/17 07:20 10:58 11:48 WBC 5.6 RBC 4.77 Hgb 13.0 Hct 38.3 MCV 80.3 MCH 27.3 MCHC 34.0 RDW 14.5 Plt Count 275 MPV 8.4 Neut % (Auto) 60.6 Lymph % (Auto) 25.5 Henry % (Auto) 9.4 Eos % (Auto) 3.5 Baso % (Auto) 1.0 Neut # (Auto) 3.4 Lymph # (Auto) 1.4 Henry # (Auto) 0.5 Eos # (Auto) 0.2 Baso # (Auto) 0.1 ESR Sodium Potassium Chloride Carbon Dioxide Anion Gap BUN Creatinine Est GFR ( Amer) Est GFR (Non-Af Amer) POC Glucose (mg/dL) 193 H 212 H Random Glucose Hemoglobin A1c Calcium Total Bilirubin AST ALT Alkaline Phosphatase C-React Prot High Sens Total Protein Albumin Globulin Albumin/Globulin Ratio Triglycerides Cholesterol LDL Cholesterol Direct HDL Cholesterol Vitamin B12 Folate Homocysteine Free T4 TSH 3rd Generation Urine Color Urine Clarity Urine pH Ur Specific [place] Urine Protein Urine Glucose (UA) Urine Ketones Urine Blood Urine Nitrate Urine Bilirubin Urine Urobilinogen Ur Leukocyte Esterase Urine WBC (Auto) Urine RBC (Auto) Urine Bacteria 12/18/17 11:48 WBC RBC Hgb Hct MCV MCH MCHC RDW Plt Count MPV Neut % (Auto) Lymph % (Auto) Henry % (Auto) Eos % (Auto) Baso % (Auto) Neut # (Auto) Lymph # (Auto) Henry # (Auto) Eos # (Auto) Baso # (Auto) ESR Sodium 133 Potassium 4.2 Chloride 97 L Carbon Dioxide 26 Anion Gap 14 BUN 15 Creatinine 0.8 Est GFR ( Amer) > 60 Est GFR (Non-Af Amer) > 60 POC Glucose (mg/dL) Random Glucose 235 H Hemoglobin A1c Calcium 9.1 Total Bilirubin 0.5 AST 15 L ALT 20 L D Alkaline Phosphatase 45 C-React Prot High Sens Total Protein 7.3 Albumin 3.5 Globulin 3.7 Albumin/Globulin Ratio 1.0 Triglycerides Cholesterol LDL Cholesterol Direct HDL Cholesterol Vitamin B12 Folate Homocysteine Free T4 TSH 3rd Generation Urine Color Urine Clarity Urine pH Ur Specific [place] Urine Protein Urine Glucose (UA) Urine Ketones Urine Blood Urine Nitrate Urine Bilirubin Urine Urobilinogen Ur Leukocyte Esterase Urine WBC (Auto) Urine RBC (Auto) Urine Bacteria Assessment & Plan (1) Diabetic foot ulcer Status: Acute (2) Hand numbness Status: Acute (3) Leg weakness, bilateral Status: Acute (4) Cellulitis Status: Acute (5) Hypertension Status: Acute (6) Necrotic toes Status: Acute (7) Diabetes Status: Chronic - Assessment and Plan (Free Text) Assessment: possible OM right foot IV rx in progress Vascular, Podiatry and Neuro on board bone scan pending may need OR/ amputation
--- NOTE | 2017-12-18 17:15 | CP.PCM.PN ---
Subjective - Date & Time of Evaluation Date of Evaluation: 12/18/17 Time of Evaluation: 10:20 - Subjective Subjective: clinically same Objective - Vital Signs/Intake and Output Vital Signs (last 24 hours): Temp Pulse Resp BP Pulse Ox 97.2 F L 78 20 165/78 H 98 12/18/17 08:04 12/18/17 08:04 12/18/17 08:04 12/18/17 08:04 12/18/17 08:04 Intake and Output: 12/18/17 12/18/17 06:59 18:59 Intake Total 458 Balance 458 - Medications Medications: Current Medications Aspirin (Ecotrin) 81 mg PO DAILY [facility] Last Admin: 12/18/17 09:46 Dose: 81 mg Enoxaparin Sodium (Lovenox) 40 mg SC DAILY [facility] Last Admin: 12/18/17 09:47 Dose: 40 mg Vancomycin/Sodium Chloride (Vancomycin 1 Gm/Ns 200 Ml) 1 gm in 200 mls @ 166.7 mls/hr IVPB Q24H [facility] Stop: 12/22/17 21:46 Last Admin: 12/17/17 22:21 Dose: 166.7 mls/hr Piperacillin Sod/Tazobactam Sod (Zosyn 3.375 Gm Iv Premix) 3.375 gm in 50 mls @ 200 mls/hr IVPB Q6H [facility] Last Admin: 12/18/17 09:49 Dose: 200 mls/hr Insulin Aspart (Novolog) 0 unit SC ACHS [facility] PRN Reason: Protocol Last Admin: 12/18/17 12:17 Dose: 2 unit Lisinopril (Zestril) 10 mg PO DAILY [facility] Last Admin: 12/18/17 09:46 Dose: 10 mg Metformin HCl (Glucophage) 1,000 mg PO BID [facility] Last Admin: 12/18/17 09:46 Dose: 1,000 mg Mupirocin (Bactroban Ointment) 1 gm TOP BID [facility] Pantoprazole Sodium (Protonix Ec Tab) 40 mg PO DAILY [facility] Last Admin: 12/18/17 09:46 Dose: 40 mg Rosuvastatin Calcium (Crestor) 10 mg PO HS [facility] Last Admin: 12/17/17 22:32 Dose: 10 mg - Labs Labs: 12/18/17 11:48 12/18/17 11:48 - Constitutional Appears: Well - Head Exam Head Exam: ATRAUMATIC, NORMAL INSPECTION, NORMOCEPHALIC - Eye Exam Eye Exam: EOMI, Normal appearance, PERRL Pupil Exam: NORMAL ACCOMODATION, PERRL - ENT Exam ENT Exam: Mucous Membranes Moist, Normal Exam - Neck Exam Neck Exam: Full ROM, Normal Inspection. absent: Lymphadenopathy - Respiratory Exam Respiratory Exam: Decreased Breath Sounds - Cardiovascular Exam Cardiovascular Exam: REGULAR RHYTHM, +S1, +S2 - GI/Abdominal Exam GI & Abdominal Exam: Soft, Diminished Bowel Sounds - Rectal Exam Rectal Exam: Deferred
[2017-12-18] MEDS ORDERED: Iodixanol 320 mg/ml 150 ml Bottle IV ONE (17:42)
--- NOTE | 2017-12-18 19:04 | CARD ---
APPROVED REPORT EXAM: Two-dimensional and M-mode echocardiogram with Doppler and color Doppler. Other Information Quality : GoodRhythm : INDICATION SMOKER, CARDIO EMBOLIC SOURCE RISK FACTORS Hypertension Diabetes 2D DIMENSIONS IVSd1.2 (0.7-1.1cm)LVDd4.3 (3.9-5.9cm) PWd1.2 (0.7-1.1cm)LVDs2.7 (2.5-4.0cm) FS (%) 37.8 %LVEF (%)68.3 (>50%) M-Mode DIMENSIONS Left Atrium (MM)3.01 (2.5-4.0cm)Aortic Root3.83 (2.2-3.7cm) Aortic Cusp Exc.1.79 (1.5-2.0cm) Aortic Valve AI P 1/2 [id number] Mitral Valve MV E Naedgsrm35.1cm/sMV A Bibcbquy84.5cm/sE/A ratio0.8 TDI E/Lateral E'0.0E/Medial E'0.0 Tricuspid Valve TR Peak Eorzbewc527ms/sTR Peak [id number] LEFT VENTRICLE There is borderline concentric left ventricular hypertrophy. The left ventricular systolic function is normal. The left ventricular ejection fraction is within the normal range. There is normal LV segmental wall motion. Transmitral Doppler flow pattern is Grade I-abnormal relaxation pattern. Normal left atrial pressure. RIGHT VENTRICLE The right ventricle is normal size. The right ventricular systolic function is normal. ATRIA The left atrium size is normal. The right atrium size is normal. AORTIC VALVE The aortic valve is calcified but, displays preserved systolic excursion. Normal peak velocity. There is mild aortic regurgitation. MITRAL VALVE The mitral valve is normal in structure. There is no mitral valve regurgitation noted. TRICUSPID VALVE The tricuspid valve is normal in structure. PULMONIC VALVE The pulmonic valve is not well visualized. There is trace to mild pulmonic valvular regurgitation. GREAT VESSELS The aortic root displays moderate sclerocalcific changes. The IVC is normal in size and collapses >50% with inspiration. PERICARDIAL EFFUSION There is no pericardial effusion. <Conclusion> There is borderline concentric left ventricular hypertrophy. The left ventricular systolic function is normal. Transmitral Doppler flow pattern is Grade I-abnormal relaxation pattern. Normal left atrial pressure. The right ventricular systolic function is normal. The aortic valve is calcified but, displays preserved systolic excursion. Normal peak velocity. There is mild aortic regurgitation. The aortic root displays moderate sclerocalcific changes. There is no pericardial effusion.
[2017-12-18] MEDS: Vancomycin 1 gm/NS 200 ml 1 GM/200 ML BAG IVPB SCH (21:30)
--- NOTE | 2017-12-18 22:43 | CARD ---
APPROVED REPORT EKG Measurement Heart [id number] <Conclusion> Normal sinus rhythm Nonspecific T wave abnormality Abnormal ECG
--- NOTE | 2017-12-18 23:14 | PCM.RRT ---
<Callie Perez - Last Filed: 12/18/17 23:37> [employer] Nurses Assessment - Situation Date: 12/18/17 Time [employer] was called: 22:29 - Constitutional Appears: No Acute Distress - Head Head Exam: ATRAUMATIC, NORMAL INSPECTION - Eyes Eye Exam: EOMI, Normal appearance - Respiratory Exam Respiratory Exam: Clear to Ausculation Bilateral, NORMAL BREATHING PATTERN. absent: Rales, Rhonchi, Wheezes, Respiratory Distress - Cardiovascular Exam Cardiovascular Exam: REGULAR RHYTHM, +S1, +S2 - GI/Abdominal Exam GI & Abdominal Exam: absent: Distended - Neurological Exam Neurological Exam: Alert, Awake Additional exam: Left facial droop; left UE and LE weakness noted during heel to mejia and finger to nose exam. - Extremities Exam Extremities Exam: absent: Calf Tenderness, Pedal Edema, Tenderness Plan - Assessment of Findings&Treatment Plan [employer] was called for hypertension and left hand weakness. Patient admitted for diabetic foot ulcer and lower extremity weakness. Patient currently complaining of left hand and UE numbness/weakness. Vitals were taken: BP 202/80, HR 64, O2 98%, glucose 225. EKG was ordered and showed [id number]. Chart reviewed. Vitals were retaken, BP 208, 87, HR 65. NIH stroke scale/exam performed, score 6. Weakness noted during left finger to nose and left heel to mejia exam, mild sensation loss of left UE. Code Stroke called at 10:53 pm. Upon further questioning, patient explained that 2 days ago, he was having difficulty holding objects, for example, his credit card. Vitals retaken, BP 192/90. CT w/ o contrast ordered. Dr. Thurman spoke with Dr. Childers and patient's inpatient neurologist, Dr. Berg. IV fluids, NS@100mls/hr started. Patient to be placed on telemetry, transferring to 6T after CT head completed. Repeat vitals: BP 178/ 84, HR 67. Patient taken for CT. <Shreyas Thurman - Last Filed: 12/19/17 00:50> Attending/Attestation - Attestation I have personally seen and examined this patient.: Yes I have fully participated in the care of the patient.: Yes I have reviewed all pertinent clinical information, including history, physical exam and plan: Yes Notes (Text): 12/19/17 00:37 Assessed patient during [employer], which was called for left arm weakness which the patient realized when he used his left arm to switch on tv, and felt lightheaded , BP noticed by nurse was as above. On exam left arm 4/5, left left leg 4/5, left arm finger nose test/ left leg heal-mejia test corresponding to the weakness, slight numbness in left arm, left angle slightly lower then right. Patient did mentioned the symptoms in left arm were new, but had weakness in left leg, difficulty in walking due to same, droop in the angle was noticed by son for 1day at home. Hence code stroke was called in suspicion of evolving stroke with newer left arm weakness. Few mins post calling code stroke patient did realize noticing left arm weakness and credit card falling with using left had for swiping, a prior neuro exam by Dr. Berg also mentioned the similar weakness in left arm. Dr. Childers called during code stroke agreed with repeat CT, CTangio in am after hydration, empiric plavix. Case d/w Dr. Berg explained current weakness which he felt was unchanged from his findings, agreed with CT and CT angio of head to hold on to plavix. Repeat CT, tele transfer, and neuro checks ordered.
--- NOTE | 2017-12-18 23:58 | CT ---
EXAM: CT Head Without Intravenous Contrast EXAM DATE/TIME: 12/18/2017 10:55 PM CLINICAL HISTORY: 67 years old, male; Signs and symptoms; Walking, difficulty; Additional info: Ue weakness, code stroke; acute right basal ganglia/beaver radiata infarct seen on MR 12/18/17 TECHNIQUE: Axial computed tomography images of the head/brain without intravenous contrast. All CT scans at this facility use one or more dose reduction techniques, viz.: automated exposure control; ma/kV adjustment per patient size (including targeted exams where dose is matched to indication; i.e. head); or iterative reconstruction technique. Coronal and sagittal reformatted images were created and reviewed. COMPARISON: CT - HEAD W/O CONTRAST 2017-12-17 13:53 FINDINGS: Brain: Ventricles are normal in size and configuration. There is no midline shift. There is a focal infarct in the right basal ganglia/beaver radiata, unchanged. There are smaller age-indeterminate periventricular and basal ganglia lacunar infarcts. There are no intra-axial or extra-axial mass lesions or areas of hemorrhage.There are basal ganglia calcifications. There are no abnormal fluid collections. Wilson-white differentiation is maintained. Ventricles: See above Bones: Cranial vault is intact. Soft tissues: unremarkable Sinuses: There is mucoperiosteal thickening in ethmoid and maxillary sinuses Ears and mastoids: Middle ears and mastoids are unremarkable Orbits: There are no acute orbital abnormalities. IMPRESSION: Age-indeterminate infarcts greatest in the right basal ganglia/beaver radiata; no acute intracranial abnormality, no bleed
[2017-12-19] MEDS: Sodium Chloride 0.9% 1,000 ML IV SCH ×3 (00:59→20:54)
[2017-12-19] MEDS: Piperacill/Tazo 3.375gm in Dex 3.375 GM/50 ML BAG IVPB SCH ×2 (02:51→14:23)
[2017-12-19 07:33] LABS: BASO # 0.1 K/uL (0.0-0.2); BASO % 0.9 % (0.0-2.0); EOS # 0.3 K/uL (0.0-0.7); EOS % 3.6 % (0.0-4.0); HEMOGLOBIN 13.6 g/dL (12.0-18.0); LYMPH # 1.8 K/uL (1.0-4.3); LYMPH % 25.7 % (20.0-40.0); MEAN CELL VOLUME 80.3 fL (80.0-94.0); MEAN CORPUSCULAR HEMOGLOBIN 26.8 pg (27.0-31.0); MEAN CORPUSCULAR HGB CONC 33.4 g/dL (33.0-37.0); MEAN PLATELET VOLUME 8.9 fL (7.2-11.7); MONO # 0.7 K/uL (0.0-0.8); MONO % 10.2 % (0.0-10.0); NEUT # 4.2 K/uL (1.8-7.0); NEUT % 59.6 % (50.0-75.0); RBC 5.05 Mil/uL (4.40-5.90); RED CELL DISTRIBUTION WIDTH 14.8 % (11.5-14.5); WHITE BLOOD COUNT 7.1 K/uL (4.8-10.8)
[2017-12-19 07:39] LABS: BLOOD UREA NITROGEN 12 mg/dL (9-20); GFR AFRICAN-AMERICAN > 60; GFR NON-AFRICAN AMERICAN > 60
[2017-12-19 07:40] LABS: ALBUMIN 3.8 g/dL (3.5-5.0); ALT/SGPT 20 U/L (21-72); AST/SGOT 24 U/L (17-59); CALCIUM 9.2 mg/dl (8.6-10.4)
--- NOTE | 2017-12-19 09:07 | CP.PCM.PN ---
Subjective - Date & Time of Evaluation Date of Evaluation: 12/19/17 Time of Evaluation: 06:45 - Subjective Subjective: Vascular surgery progress note for Dr. Claudio Lincoln, PGY-1 Pt S & E at bedside. Pt denies L foot pain. INFORMATICS PHYSICIAN called overnight for Left hand and UE numbness/ weakness- transferred to [facility]. No new complaints. Objective - Vital Signs/Intake and Output Vital Signs (last 24 hours): Temp Pulse Resp BP Pulse Ox 97.9 F 69 20 151/76 H 97 12/19/17 08:41 12/19/17 08:41 12/19/17 08:41 12/19/17 08:41 12/19/17 08:41 Intake and Output: 12/19/17 12/19/17 06:59 18:59 Intake Total 1140 Output Total 200 Balance 940 - Medications Medications: Current Medications Aspirin (Ecotrin) 81 mg PO DAILY [facility] Last Admin: 12/18/17 09:46 Dose: 81 mg Enoxaparin Sodium (Lovenox) 40 mg SC DAILY [facility] Last Admin: 12/18/17 09:47 Dose: 40 mg Famotidine (Pepcid) 20 mg PO BID [facility] Hydrochlorothiazide (Hydrodiuril) 25 mg PO DAILY [facility] Last Admin: 12/19/17 01:25 Dose: 25 mg Vancomycin/Sodium Chloride (Vancomycin 1 Gm/Ns 200 Ml) 1 gm in 200 mls @ 166.7 mls/hr IVPB Q24H [facility] Stop: 12/22/17 21:46 Last Admin: 12/18/17 21:30 Dose: 166.7 mls/hr Piperacillin Sod/Tazobactam Sod (Zosyn 3.375 Gm Iv Premix) 3.375 gm in 50 mls @ 200 mls/hr IVPB Q6H [facility] Last Admin: 12/19/17 02:51 Dose: 200 mls/hr Sodium Chloride (Sodium Chloride 0.9%) 1,000 mls @ 100 mls/hr IV .Q10H [facility] Last Admin: 12/19/17 00:59 Dose: 100 mls/hr Insulin Aspart (Novolog) 0 unit SC ACHS [facility] PRN Reason: Protocol Last Admin: 12/18/17 22:09 Dose: Not Given Lisinopril (Zestril) 10 mg PO DAILY [facility] Last Admin: 12/18/17 09:46 Dose: 10 mg Metformin HCl (Glucophage) 1,000 mg PO BID [facility] Last Admin: 12/18/17 18:07 Dose: 1,000 mg Mupirocin (Bactroban Ointment) 1 gm TOP BID [facility] Last Admin: 12/18/17 18:16 Dose: Not Given Rosuvastatin Calcium (Crestor) 10 mg PO HS [facility] Last Admin: 12/18/17 21:07 Dose: 10 mg - Labs Labs: 12/19/17 07:09 12/19/17 07:09 - Constitutional Appears: Non-toxic, No Acute Distress - Head Exam Head Exam: ATRAUMATIC, NORMAL INSPECTION, NORMOCEPHALIC - Eye Exam Eye Exam: EOMI, Normal appearance - ENT Exam ENT Exam: Mucous Membranes Moist, Normal Exam - Neck Exam Neck Exam: Full ROM, Normal Inspection - Respiratory Exam Respiratory Exam: NORMAL BREATHING PATTERN - Cardiovascular Exam Cardiovascular Exam: REGULAR RHYTHM, +S1, +S2 - Extremities Exam Extremities Exam: absent: Tenderness - Neurological Exam Neurological Exam: Alert, Awake, CN II-XII Intact, Oriented x3 - Psychiatric Exam Psychiatric exam: Normal Affect, Normal Mood - Skin Skin Exam: Dry, Intact, Normal Color, Warm Assessment and Plan - Assessment and Plan (Free Text) Assessment: 67 y/o M w/ diabetic foot wound and sudden-onset weakness Plan: FU CTA FU LE Duplex Podiatry following Further recs pending imaging results Further mgmt as per primary and podiatry teams Will DW attending [place], PGY-1
[2017-12-19] MEDS: Enoxaparin 40 mg Syringe SC SCH (10:19)
[2017-12-19] MEDS: (Novolog) Insulin Aspart, Recombinant 100 u/ml 10 ml vial SC SCH ×4 (10:19→21:13)
--- NOTE | 2017-12-19 11:07 | VASCLAB ---
PROCEDURE: HISTORY: ASSESS STENOSIS COMPARISON: None available. TECHNIQUE: Grayscale and duplex Doppler evaluation of the cervical carotid and vertebral arteries were performed. The common carotid, carotid bifurcations and cervical Internal Carotid Artery (ICA) and proximal External Carotid Artery (ECA) were evaluated. The vertebral arteries were evaluated for gross patency and flow direction. Report prepared by Cody Nails, BS, RVT FINDINGS: RIGHT CAROTID ARTERIES: 1. Common Carotid Artery: No significant focal plaque formation of the right common carotid artery. Maximum Peak Systolic velocity: 55 cm/sec: End-diastolic velocity 9 cm/sec. 2. Carotid Bifurcation: plaque formation. Maximum Peak Systolic velocity: 52 cm/sec: End-diastolic velocity 14 cm/sec. 3. Internal Carotid Artery: Plaque description: 3.1. Proximal Segment: Peak systolic velocity 65 cm/sec: End-diastolic velocity 17 cm/sec - % stenosis 0-15% 3.2. Middle Segment: Peak systolic velocity 89 cm/sec: End-diastolic velocity 28 cm/sec - % stenosis 0-15% 3.3. Distal Segment: Peak systolic velocity 108 cm/sec: End-diastolic velocity 33 cm/sec - % stenosis 0-15% 4. External Carotid Artery: No significant focal plaque formation. Peak systolic velocity cm/sec 5. ICA/CCA Ratio: 2.0 LEFT CAROTID ARTERIES: 1. Common Carotid Artery: No significant focal plaque formation of the left common carotid artery. Maximum Peak Systolic velocity: 50 cm/sec: End-diastolic velocity 14 cm/sec. 2. Carotid Bifurcation: plaque formation. Maximum Peak Systolic velocity: 46 cm/sec: End-diastolic velocity 12 cm/sec. 3. Internal Carotid Artery: Plaque description: 3.1. Proximal Segment: Peak systolic velocity 68 cm/sec: End-diastolic velocity 20 cm/sec - % stenosis 0-15% 3.2. Middle Segment: Peak systolic velocity 90 cm/sec: End-diastolic velocity 29 cm/sec - % stenosis 0-15% 3.3. Distal Segment: Peak systolic velocity 96 cm/sec: End-diastolic velocity 29 cm/sec - % stenosis 0-15% 4. External Carotid Artery: No significant focal plaque formation. Peak systolic velocity 133 cm/sec 5. ICA/CCA Ratio: 1.9 VERTEBRAL ARTERIES: 1. Right Vertebral Artery: The right vertebral artery flow direction is antegrade. 2. Left Vertebral Artery: The left vertebral artery flow direction is antegrade. OTHER FINDINGS: 1. Right Brachial Blood pressure: mmHg. 2. Left Brachial Blood pressure: mmHg. IMPRESSION: RIGHT: Duplex scan does not suggest hemodynamically significant stenosis of the right extracranial carotid arteries. LEFT: Duplex scan does not suggest hemodynamically significant stenosis of the left extracranial carotid arteries.
--- NOTE | 2017-12-19 11:08 | VASCLAB ---
PROCEDURE: Right Lower Extremity Venous Duplex Exam. HISTORY: foot wound PRIORS: None. TECHNIQUE: Right common femoral, femoral, popliteal and posterior tibial, peroneal and great saphenous veins were evaluated. Flow was assessed with color Doppler, compressibility, assessment of phasic flow and augmentation response. Report prepared by LION Lemus, RVT FINDINGS: RIGHT: 1. Common Femoral Vein: 1.1. Compressibility - Fully compressible: Thrombus - None: Flow - Phasic: Augmentation -Normal: Reflux - None. 2. Femoral Vein: 2.1. Compressibility - Fully compressible: Thrombus - None: Flow - Phasic: Augmentation -Normal: Reflux - None. 3. Popliteal Vein: 3.1. Compressibility - Fully compressible: Thrombus - None: Flow - Phasic: Augmentation -Normal: Reflux - None. 4. Posterior Tibial Vein: 4.1. Compressibility - Fully compressible: Thrombus - None: Flow - Phasic: Augmentation -Normal: Reflux - None. 5. Peroneal Vein: 5.1. Compressibility - Fully compressible: Thrombus - None: Flow - Phasic: Augmentation -Normal: Reflux - None. 6. Great Saphenous Vein: 6.1. Compressibility - Fully compressible: Thrombus -None: Flow - Phasic: Augmentation - Normal: Reflux - None. OTHER FINDINGS: IMPRESSION: No evidence of deep or superficial vein thrombosis of the right lower extremity with excellent venous flow. Normal valve function noted of the right side. Normal venous flow noted in the left common femoral vein.
--- NOTE | 2017-12-19 11:46 | CT ---
PROCEDURE: CT Angiography Abdomen, Pelvis and Lower Extremity with Contrast HISTORY: pvd COMPARISON: None. TECHNIQUE: Technique: CT angiography of the abdomen, pelvis and bilateral lower extremities performed in the arterial phase of enhancement. Coronal and sagittal reformats, and well as rotating MIP images of the vessels generated at the workstation. Intravenous contrast dose: 150 milliliters Visipaque 320 Radiation dose: Total exam DLP = 1413.38 MGy-cm. This CT exam was performed using one or more of the following dose reduction techniques: Automated exposure control, adjustment of the mA and/or kV according to patient size, and/or use of iterative reconstruction technique. FINDINGS: CT ANGIOGRAPHY: ABDOMINAL AORTA:: THE ABDOMINAL WAS UNREMARKABLE. MAJOR AORTIC BRANCHES: Celiac [place]: Unremarkable. Superior mesenteric artery: Unremarkable. Inferior mesenteric artery: Unremarkable. Renal arteries: Unremarkable. PELVIC ARTERIES: Right Common Iliac: Unremarkable. Right External Iliac: Unremarkable. Right Internal Iliac: Unremarkable. Left Common Iliac: Unremarkable. Left External Iliac: Unremarkable. Left Internal Iliac: Unremarkable. RIGHT LOWER EXTREMITY ARTERIES: Right Common Femoral: Unremarkable. Right Superficial Femoral: There is no significant stenosis within the superficial femoral artery. Right Profunda Femoris: Unremarkable. Right Popliteal:Is mild stenosis of the mid popliteal artery. Right Anterior Tibial: Unremarkable. Right Tibioperoneal Trunk: Unremarkable. Right Posterior Tibial: Possible moderate stenosis in the proximal segment of the posterior tibial artery. Right Peroneal: There is diffuse narrowing of the peroneal artery which may be secondary to long segment moderate stenosis. Right dorsalis pedis : Unremarkable. LEFT LOWER EXTREMITY ARTERIES: Left Common Femoral: Unremarkable. Left Superficial Femoral: Area of mild stenosis within the distal superficial femoral artery. Left Profunda Femoris: Unremarkable. Left Popliteal: Unremarkable. Left Anterior Tibial: Unremarkable. Left Tibioperoneal Trunk: There is mild to severe stenosis of the distal tibioperoneal trunk. Left Posterior Tibial: Short segment area of severe stenosis or occlusion within the proximal posterior tibial artery. Left Peroneal: Possible multi segment area of severe stenosis or occlusion within the peroneal artery. The peroneal artery is diffusely narrowed. Left Dorsalis pedis: Unremarkable NON-ANGIOGRAPHIC ASPECT OF THE EXAM: LOWER THORAX: Unremarkable. LIVER: Unremarkable. No gross lesion or ductal dilatation. GALLBLADDER AND BILE DUCTS: Unremarkable. PANCREAS: Unremarkable. No gross lesion or ductal dilatation. SPLEEN: Unremarkable. ADRENALS: Unremarkable. No mass. KIDNEYS AND URETERS: Unremarkable. No hydronephrosis. No solid mass. STOMACH AND BOWEL: Unremarkable. No obstruction. No gross mural thickening. APPENDIX: Normal appendix. PERITONEUM: Unremarkable. No free fluid. No free air. LYMPH NODES: Unremarkable. No enlarged lymph nodes. BLADDER: Unremarkable. REPRODUCTIVE: Unremarkable. BONES: No acute fracture. OTHER FINDINGS: None. IMPRESSION: CT ANGIOGRAM ABDOMEN AND PELVIS: 1. Unremarkable CT angiogram of the abdomen pelvis. RIGHT LOWER EXTREMITY CT ANGIOGRAM: 1. Common femoral artery, superficial femoral artery, and profunda femoral artery are unremarkable. 2. There is mild stenosis of the mid popliteal artery. 3.. Runoff shows a patent and otherwise unremarkable anterior tibial artery. There is severe stenosis of the distal tibioperoneal artery. Multi focal areas of moderate to severe stenosis of the peroneal artery and also the posterior tibial artery is present. tibioperoneal artery. LEFT LOWER EXTREMITY CT ANGIOGRAM: 1. The common femoral artery, profunda femoral artery and is superficial femoral artery are unremarkable 2. Popliteal artery is unremarkable 3. Runoff shows a patent anterior tibial artery. There is diffuse small segment area of severe stenosis within the peroneal artery and also the posterior tibial artery.
--- NOTE | 2017-12-19 11:51 | PN ---
DATE: 12/19/2017 TIME OF EVALUATION: 06:45 a.m. SUBJECTIVE: The patient does have subacute process of ischemic process, affecting left hemiparesis which has been documented as per my initial examination at 06:38 p.m. yesterday. The patient had symptoms been manifesting with the weakness of his left side and gait disturbances which has been started 3 or 4 days ago. As per my examination, the patient has requested to have MRI of the brain and further workup for his stroke already been requested. The patient does show subacute process of stroke at superior basal ganglia region over right side which could explain his left-sided weakness. This is more than 72-hour period. Because of his clinical presentation, the patient was called on code stroke. I do not know the reason and never been informed me about the code stroke process. The patient's condition been discussed with knifeman over the middle of last night. At present, the patient denies any new weakness. The patient has facial asymmetry, left upper extremity drift, and circumduction gait which are not changed from yesterday. His workup echocardiogram showed good ejection fraction and aortic valve incompetence. Carotid Doppler is still pending. MRI brain showed small vessel disease, multiple periventricular ischemic changes, all due to his poor control of his diabetes mellitus, hypertension, dyslipidemia, and smoking. RECOMMENDATION: Considering his cardiac murmur and abnormal echo findings, Cardiology input is needed. No further workup is needed from neurological point of view including CT angiogram which could not change his current management at present. Continue antiplatelets, statin, and angiotensin receptor blockers from neurological point of view. The patient should get continuous physical therapy and occupational therapy to improve his weakness. If all stable, the patient can be discharged and should have a followup visit with me as outpatient. The patient's condition has been well discussed with him. He agreed with my plan of management. Sven Berg MD
--- NOTE | 2017-12-19 12:02 | CP.PCM.PN ---
Subjective - Date & Time of Evaluation Date of Evaluation: 12/19/17 Time of Evaluation: 12:00 - Subjective Subjective: Progress note. ATTENDING: DR TERRELL ENGLAND Pt seen and examined at bedside. No acute distress. Pt did have code stroke called overnight, but per note by DR. HERZOG findings were not new. Pt does complain of weakness on his left side and weakness in legs B/L. Otherwise, no pain, no fevers, chills, vomiting, diarrhea, chest pain, sob. Objective - Vital Signs/Intake and Output Vital Signs (last 24 hours): Temp Pulse Resp BP Pulse Ox 97.9 F 69 20 151/76 H 77 L 12/19/17 08:41 12/19/17 08:41 12/19/17 08:41 12/19/17 08:41 12/19/17 10:50 Intake and Output: 12/19/17 12/19/17 06:59 18:59 Intake Total 1140 Output Total 200 Balance 940 - Medications Medications: Current Medications Aspirin (Ecotrin) 81 mg PO DAILY [facility] Last Admin: 12/19/17 10:18 Dose: 81 mg Enoxaparin Sodium (Lovenox) 40 mg SC DAILY [facility] Last Admin: 12/19/17 10:19 Dose: 40 mg Famotidine (Pepcid) 20 mg PO BID [facility] Last Admin: 12/19/17 10:19 Dose: 20 mg Hydrochlorothiazide (Hydrodiuril) 25 mg PO DAILY [facility] Last Admin: 12/19/17 10:19 Dose: 25 mg Vancomycin/Sodium Chloride (Vancomycin 1 Gm/Ns 200 Ml) 1 gm in 200 mls @ 166.7 mls/hr IVPB Q24H [facility] Stop: 12/22/17 21:46 Last Admin: 12/18/17 21:30 Dose: 166.7 mls/hr Piperacillin Sod/Tazobactam Sod (Zosyn 3.375 Gm Iv Premix) 3.375 gm in 50 mls @ 200 mls/hr IVPB Q6H [facility] Stop: 12/19/17 12:00 Last Admin: 12/19/17 02:51 Dose: 200 mls/hr Sodium Chloride (Sodium Chloride 0.9%) 1,000 mls @ 100 mls/hr IV .Q10H [facility] Last Admin: 12/19/17 00:59 Dose: 100 mls/hr Piperacillin Sod/Tazobactam (Sod 3.375 gm/ Sodium Chloride) 100 mls @ 200 mls/ hr IVPB Q6H [facility] Insulin Aspart (Novolog) 0 unit SC ACHS [facility] PRN Reason: Protocol Last Admin: 12/19/17 10:19 Dose: 1 unit Lisinopril (Zestril) 10 mg PO DAILY [facility] Last Admin: 12/19/17 10:19 Dose: 10 mg Metformin HCl (Glucophage) 1,000 mg PO BID [facility] Last Admin: 12/18/17 18:07 Dose: 1,000 mg Mupirocin (Bactroban Ointment) 1 gm TOP BID [facility] Last Admin: 12/18/17 18:16 Dose: Not Given Rosuvastatin Calcium (Crestor) 10 mg PO HS [facility] Last Admin: 12/18/17 21:07 Dose: 10 mg - Labs Labs: 12/19/17 07:09 12/19/17 07:09 - Constitutional Appears: Non-toxic, No Acute Distress - Head Exam Head Exam: ATRAUMATIC, NORMAL INSPECTION, NORMOCEPHALIC - Eye Exam Eye Exam: EOMI - ENT Exam ENT Exam: Mucous Membranes Moist - Respiratory Exam Respiratory Exam: NORMAL BREATHING PATTERN. absent: Respiratory Distress - Cardiovascular Exam Cardiovascular Exam: +S1, +S2 - GI/Abdominal Exam GI & Abdominal Exam: Soft, Normal Bowel Sounds. absent: Tenderness - Extremities Exam Extremities Exam: absent: Full ROM, Normal Inspection - Back Exam Back Exam: NORMAL INSPECTION - Neurological Exam Neurological Exam: Alert, Awake, CN II-XII Intact, Oriented x3. absent: Normal Gait Neuro motor strength exam: Left Upper Extremity: 4, Right Upper Extremity: 5, Left Lower Extremity: 4, Right Lower Extremity: 5 Additional comments: some dysmetria noted on left side some facial asymmetry noted. - Psychiatric Exam Psychiatric exam: Normal Affect, Normal Mood - Skin Skin Exam: Dry, Intact, Normal Color, Warm Assessment and Plan - Assessment and Plan (Free Text) Assessment: This is a 67 yo male with 1. R/O diabetic foot ulcer -bone scan pending -podiatry consult. DR SCHRADER. recs appreciated. -asa 81 daily -unremarkable CT angiogram with runoff of abdomen and pelvis -venous duplex right lower extremity- within normal limits -carotid dopplers- within normal limits -continue IV vanco -continue IV zosyn -blood cultures negative so far. -ID consult. recs appreciated. -vascular sx consult. DR TOVAR. recs appreciated. 2. Left hemiparesis -code stroke was called overnight, but per note by Dr. Herzog, all findings were previously noted. -head CT performed overnight was negative for any acute intracranial abnormality or bleed; showed age indeterminate infarcts. -pt was transferred to telemetry. -pt has subacute process. -neurology consult. DR HERZOG. recs appreciated. -continue asa 81 mg po daily -continue crestor -likely subacute ischemic process -brain MRI shows chronic changes, small vessel disease, periventricular ischemic changes -continue physical therapy -continue lovenox 40 daily -cardiology consult. recs appreciated. -echo shows normal LV function, borderline LVH, borderline diastolic dysfunction. 2. hx of HLD -continue crestor PO HS 3. hx of DM -hold metformin for now -continue lisinopril 10 mg PO daily -continue ISS 4. hx of HTN -continue HCTZ 25 daily -continue lisinopril 10 mg po daily 4. GI/DVT ppx -lovenox 40 mg sc daily -pepcid [address] [place]
--- NOTE | 2017-12-19 13:09 | CP.PCM.CON ---
<Brittany Wilson - Last Filed: 12/19/17 13:05> History of Present Illness - History of Present Illness History of Present Illness: Cardiology consult note for Dr. Tejada: 67 year old with a past medical history of HTN, DM2, and diabetic neuropathy presented to the ED c/o R foot wound and weakness. Code stroke was called overnight and head CT was negative for any acute intracranial abnormality or bleed; showed age indeterminate infarcts in basal ganglia. Patient denies history of A fib or any other cardiac history. Denies chest pain, palpitations, or shortness of breath. Cardiology was consulted to rule out cardiac origins for stroke. Review of Systems - Constitutional Constitutional: absent: Chills, Fever - Cardiovascular Cardiovascular: absent: Chest Pain, Chest Pain at Rest, Palpitations - Respiratory Respiratory: absent: Cough, Dyspnea, Dyspnea on Exertion - Gastrointestinal Gastrointestinal: absent: Abdominal Pain Past Patient History - Past Medical History & Family History Past Medical History?: Yes - Past Social History Smoking Status: Light Smoker < 10 Cigarettes Daily - CARDIAC Hx Hypertension: Yes - HEENT Hx HEENT Problems: Yes Hx Cataracts: Yes (left cataract sx 2013) - ENDOCRINE/METABOLIC Hx Diabetes Mellitus Type 2: Yes - MUSCULOSKELETAL/RHEUMATOLOGICAL Hx Falls: No - PSYCHIATRIC Hx Substance Use: No - SURGICAL HISTORY Hx Surgeries: Yes (L eye cataract surgery) - ANESTHESIA Hx Anesthesia: Yes Hx Anesthesia Reactions: No Hx Malignant Hyperthermia: No Meds Allergies/Adverse Reactions: Allergies Allergy/AdvReac Type Severity Reaction Status Date / Time No Known Allergies Allergy Verified 12/17/17 11:04 - Medications Medications: Current Medications Aspirin (Ecotrin) 81 mg PO DAILY [facility] Last Admin: 12/19/17 10:18 Dose: 81 mg Enoxaparin Sodium (Lovenox) 40 mg SC DAILY [facility] Last Admin: 12/19/17 10:19 Dose: 40 mg Famotidine (Pepcid) 20 mg PO BID [facility] Last Admin: 12/19/17 10:19 Dose: 20 mg Hydrochlorothiazide (Hydrodiuril) 25 mg PO DAILY [facility] Last Admin: 12/19/17 10:19 Dose: 25 mg Vancomycin/Sodium Chloride (Vancomycin 1 Gm/Ns 200 Ml) 1 gm in 200 mls @ 166.7 mls/hr IVPB Q24H [facility] Stop: 12/22/17 21:46 Last Admin: 12/18/17 21:30 Dose: 166.7 mls/hr Sodium Chloride (Sodium Chloride 0.9%) 1,000 mls @ 100 mls/hr IV .Q10H [facility] Last Admin: 12/19/17 00:59 Dose: 100 mls/hr Piperacillin Sod/Tazobactam (Sod 3.375 gm/ Sodium Chloride) 100 mls @ 200 mls/ hr IVPB Q6H [facility] Insulin Aspart (Novolog) 0 unit SC ACHS [facility] PRN Reason: Protocol Last Admin: 12/19/17 10:19 Dose: 1 unit Lisinopril (Zestril) 10 mg PO DAILY [facility] Last Admin: 12/19/17 10:19 Dose: 10 mg Metformin HCl (Glucophage) 1,000 mg PO BID [facility] Last Admin: 12/18/17 18:07 Dose: 1,000 mg Mupirocin (Bactroban Ointment) 1 gm TOP BID [facility] Last Admin: 12/18/17 18:16 Dose: Not Given Rosuvastatin Calcium (Crestor) 10 mg PO HS [facility] Last Admin: 12/18/17 21:07 Dose: 10 mg Physical Exam - Constitutional Appears: Non-toxic, No Acute Distress - Head Exam Head Exam: ATRAUMATIC, NORMAL INSPECTION - Respiratory Exam Respiratory Exam: Clear to Auscultation Bilateral, NORMAL BREATHING PATTERN. absent: Rales, Wheezes - Cardiovascular Exam Cardiovascular Exam: REGULAR RHYTHM, +S1, +S2 - GI/Abdominal Exam GI & Abdominal Exam: Normal Bowel Sounds, Soft. absent: Tenderness - Extremities Exam Extremities exam: Positive for: normal inspection - Back Exam Back exam: NORMAL INSPECTION - Neurological Exam Neurological exam: Alert, CN II-XII Intact, Oriented x3 - Psychiatric Exam Psychiatric exam: Normal Affect, Normal Mood Results - Vital Signs Recent Vital Signs: Last Vital Signs Temp 97.9 F 12/19/17 08:41 Pulse 69 12/19/17 08:41 Resp 20 12/19/17 08:41 BP 151/76 H 12/19/17 08:41 Pulse Ox 77 L 12/19/17 10:50 - Labs Result Diagrams: 12/19/17 07:09 12/19/17 07:09 Labs: Laboratory Results - last 24 hr 12/18/17 12/18/17 12/18/17 07:11 16:36 21:07 WBC RBC Hgb Hct MCV MCH MCHC RDW Plt Count MPV Neut % (Auto) Lymph % (Auto) Carbon % (Auto) Eos % (Auto) Baso % (Auto) Neut # (Auto) Lymph # (Auto) Carbon # (Auto) Eos # (Auto) Baso # (Auto) Sodium Potassium Chloride Carbon Dioxide Anion Gap BUN Creatinine Est GFR ( Amer) Est GFR (Non-Af Amer) POC Glucose (mg/dL) 161 H 248 H Random Glucose Calcium Total Bilirubin AST ALT Alkaline Phosphatase Total Protein Albumin Globulin Albumin/Globulin Ratio Vancomycin Trough RPR Nonreactive 12/18/17 12/19/17 12/19/17 22:37 06:44 07:09 WBC 7.1 RBC 5.05 Hgb 13.6 Hct 40.6 MCV 80.3 MCH 26.8 L MCHC 33.4 RDW 14.8 H Plt Count 296 MPV 8.9 Neut % (Auto) 59.6 Lymph % (Auto) 25.7 Carbon % (Auto) 10.2 H Eos % (Auto) 3.6 Baso % (Auto) 0.9 Neut # (Auto) 4.2 Lymph # (Auto) 1.8 Carbon # (Auto) 0.7 Eos # (Auto) 0.3 Baso # (Auto) 0.1 Sodium Potassium Chloride Carbon Dioxide Anion Gap BUN Creatinine Est GFR ( Amer) Est GFR (Non-Af Amer) POC Glucose (mg/dL) 225 H 179 H Random Glucose Calcium Total Bilirubin AST ALT Alkaline Phosphatase Total Protein Albumin Globulin Albumin/Globulin Ratio Vancomycin Trough RPR 12/19/17 12/19/17 07:09 07:09 WBC RBC Hgb Hct MCV MCH MCHC RDW Plt Count MPV Neut % (Auto) Lymph % (Auto) Carbon % (Auto) Eos % (Auto) Baso % (Auto) Neut # (Auto) Lymph # (Auto) Carbon # (Auto) Eos # (Auto) Baso # (Auto) Sodium 136 Potassium 4.0 Chloride 98 Carbon Dioxide 27 Anion Gap 15 BUN 12 Creatinine 0.8 Est GFR ( Amer) > 60 Est GFR (Non-Af Amer) > 60 POC Glucose (mg/dL) Random Glucose 179 H Calcium 9.2 Total Bilirubin 0.7 AST 24 ALT 20 L Alkaline Phosphatase 45 Total Protein 7.8 Albumin 3.8 Globulin 3.9 Albumin/Globulin Ratio 1.0 Vancomycin Trough 8.4 RPR Assessment & Plan - Assessment and Plan (Free Text) Assessment: CVA new vs old will need to rule out cardic origins for stroke EKG - no ST changes will need to get MARIYA with bubble study (will likely do tomorrow or ) ASA 81mg PO daily CHF EF 65% - diastolic grade 1 dysfunction, LVH on crestor Discussed with Dr. Tejada <Kevyn Tejada - Last Filed: 12/19/17 23:25> Meds - Medications Medications: Current Medications Aspirin (Ecotrin) 81 mg PO DAILY [facility] Last Admin: 12/19/17 10:18 Dose: 81 mg Enoxaparin Sodium (Lovenox) 40 mg SC DAILY [facility] Last Admin: 12/19/17 10:19 Dose: 40 mg Famotidine (Pepcid) 20 mg PO BID [facility] Last Admin: 12/19/17 17:10 Dose: 20 mg Hydrochlorothiazide (Hydrodiuril) 25 mg PO DAILY [facility] Last Admin: 12/19/17 10:19 Dose: 25 mg Vancomycin/Sodium Chloride (Vancomycin 1 Gm/Ns 200 Ml) 1 gm in 200 mls @ 166.7 mls/hr IVPB Q24H [facility] Stop: 12/22/17 21:46 Last Admin: 12/19/17 21:34 Dose: 166.7 mls/hr Sodium Chloride (Sodium Chloride 0.9%) 1,000 mls @ 100 mls/hr IV .Q10H [facility] Last Admin: 12/19/17 20:54 Dose: Not Given Piperacillin Sod/Tazobactam (Sod 3.375 gm/ Sodium Chloride) 100 mls @ 200 mls/ hr IVPB Q6H [facility] Last Admin: 12/19/17 21:34 Dose: 200 mls/hr Insulin Aspart (Novolog) 0 unit SC ACHS [facility] PRN Reason: Protocol Last Admin: 12/19/17 21:13 Dose: Not Given Lisinopril (Zestril) 10 mg PO DAILY [facility] Last Admin: 12/19/17 10:19 Dose: 10 mg Metformin HCl (Glucophage) 1,000 mg PO BID [facility] Last Admin: 12/18/17 18:07 Dose: 1,000 mg Mupirocin (Bactroban Ointment) 1 gm TOP BID [facility] Last Admin: 12/19/17 17:10 Dose: 1 applic Rosuvastatin Calcium (Crestor) 10 mg PO HS [facility] Last Admin: 12/19/17 21:34 Dose: 10 mg Results - Vital Signs Recent Vital Signs: Last Vital Signs Temp 97.9 F 12/19/17 15:15 Pulse 71 12/19/17 15:15 Resp 20 12/19/17 15:15 BP 143/73 12/19/17 15:15 Pulse Ox 100 12/19/17 15:15 - Labs Result Diagrams: 12/19/17 07:09 12/19/17 07:09 Labs: Laboratory Results - last 24 hr 12/18/17 12/18/17 12/19/17 07:11 22:37 06:44 WBC RBC Hgb Hct MCV MCH MCHC RDW Plt Count MPV Neut % (Auto) Lymph % (Auto) Carbon % (Auto) Eos % (Auto) Baso % (Auto) Neut # (Auto) Lymph # (Auto) Carbon # (Auto) Eos # (Auto) Baso # (Auto) Sodium Potassium Chloride Carbon Dioxide Anion Gap BUN Creatinine Est GFR ( Amer) Est GFR (Non-Af Amer) POC Glucose (mg/dL) 225 H 179 H Random Glucose Calcium Total Bilirubin AST ALT Alkaline Phosphatase Total Protein Albumin Globulin Albumin/Globulin Ratio Vancomycin Trough Serum Immunofixation Not detected 12/19/17 12/19/17 12/19/17 07:09 07:09 07:09 WBC 7.1 RBC 5.05 Hgb 13.6 Hct 40.6 MCV 80.3 MCH 26.8 L MCHC 33.4 RDW 14.8 H Plt Count 296 MPV 8.9 Neut % (Auto) 59.6 Lymph % (Auto) 25.7 Carbon % (Auto) 10.2 H Eos % (Auto) 3.6 Baso % (Auto) 0.9 Neut # (Auto) 4.2 Lymph # (Auto) 1.8 Carbon # (Auto) 0.7 Eos # (Auto) 0.3 Baso # (Auto) 0.1 Sodium 136 Potassium 4.0 Chloride 98 Carbon Dioxide 27 Anion Gap 15 BUN 12 Creatinine 0.8 Est GFR ( Amer) > 60 Est GFR (Non-Af Amer) > 60 POC Glucose (mg/dL) Random Glucose 179 H Calcium 9.2 Total Bilirubin 0.7 AST 24 ALT 20 L Alkaline Phosphatase 45 Total Protein 7.8 Albumin 3.8 Globulin 3.9 Albumin/Globulin Ratio 1.0 Vancomycin Trough 8.4 Serum Immunofixation 12/19/17 12/19/17 12/19/17 11:36 16:20 20:20 WBC RBC Hgb Hct MCV MCH MCHC RDW Plt Count MPV Neut % (Auto) Lymph % (Auto) Carbon % (Auto) Eos % (Auto) Baso % (Auto) Neut # (Auto) Lymph # (Auto) Carbon # (Auto) Eos # (Auto) Baso # (Auto) Sodium Potassium Chloride Carbon Dioxide Anion Gap BUN Creatinine Est GFR ( Amer) Est GFR (Non-Af Amer) POC Glucose (mg/dL) 245 H 248 H 233 H Random Glucose Calcium Total Bilirubin AST ALT Alkaline Phosphatase Total Protein Albumin Globulin Albumin/Globulin Ratio Vancomycin Trough Serum Immunofixation Assessment & Plan - Assessment and Plan (Free Text) Plan: Patient seen and evaluated with the certified medical technician Plan of care as documented
--- NOTE | 2017-12-19 16:00 | NM ---
PROCEDURE: Whole Body Bone Scan HISTORY: r/o OM R 4th digit COMPARISON: Right foot radiographs 12/12/2017. TECHNIQUE: Following intravenous administration of 23.6 miCu of Tc MDP three-phase nuclear bone scan imaging was performed at the bilateral feet. Dynamic, immediate and delayed static images of been submitted for interpretation. FINDINGS: Dynamic phase images demonstrate limited increased uptake in the right forefoot on plantar imaging, borderline apparent on dorsal imaging. Immediate static images demonstrated mild increase uptake at the lateral right forefoot on plantar and dorsal imaging with this activity normalizing in the delayed static images. The findings most compatible with cellulitis but not osteomyelitis. IMPRESSION: Findings most compatible with cellulitis rather than osteomyelitis of the lateral right forefoot as discussed above.
--- NOTE | 2017-12-19 16:50 | CP.PCM.PN ---
Subjective - Date & Time of Evaluation Date of Evaluation: 12/19/17 Time of Evaluation: 14:00 - Subjective Subjective: clinically same Objective - Vital Signs/Intake and Output Vital Signs (last 24 hours): Temp Pulse Resp BP Pulse Ox 97.9 F 71 20 143/73 100 12/19/17 15:15 12/19/17 15:15 12/19/17 15:15 12/19/17 15:15 12/19/17 15:15 Intake and Output: 12/19/17 12/19/17 06:59 18:59 Intake Total 1140 Output Total 200 Balance 940 - Medications Medications: Current Medications Aspirin (Ecotrin) 81 mg PO DAILY [facility] Last Admin: 12/19/17 10:18 Dose: 81 mg Enoxaparin Sodium (Lovenox) 40 mg SC DAILY [facility] Last Admin: 12/19/17 10:19 Dose: 40 mg Famotidine (Pepcid) 20 mg PO BID [facility] Last Admin: 12/19/17 10:19 Dose: 20 mg Hydrochlorothiazide (Hydrodiuril) 25 mg PO DAILY [facility] Last Admin: 12/19/17 10:19 Dose: 25 mg Vancomycin/Sodium Chloride (Vancomycin 1 Gm/Ns 200 Ml) 1 gm in 200 mls @ 166.7 mls/hr IVPB Q24H [facility] Stop: 12/22/17 21:46 Last Admin: 12/18/17 21:30 Dose: 166.7 mls/hr Sodium Chloride (Sodium Chloride 0.9%) 1,000 mls @ 100 mls/hr IV .Q10H [facility] Last Admin: 12/19/17 14:24 Dose: 100 mls/hr Piperacillin Sod/Tazobactam (Sod 3.375 gm/ Sodium Chloride) 100 mls @ 200 mls/ hr IVPB Q6H [facility] Insulin Aspart (Novolog) 0 unit SC ACHS [facility] PRN Reason: Protocol Last Admin: 12/19/17 14:23 Dose: 2 unit Lisinopril (Zestril) 10 mg PO DAILY [facility] Last Admin: 12/19/17 10:19 Dose: 10 mg Metformin HCl (Glucophage) 1,000 mg PO BID [facility] Last Admin: 12/18/17 18:07 Dose: 1,000 mg Mupirocin (Bactroban Ointment) 1 gm TOP BID [facility] Last Admin: 12/19/17 14:20 Dose: Not Given Rosuvastatin Calcium (Crestor) 10 mg PO HS [facility] Last Admin: 12/18/17 21:07 Dose: 10 mg - Labs Labs: 12/19/17 07:09 12/19/17 07:09 - Constitutional Appears: Well - Head Exam Head Exam: ATRAUMATIC, NORMAL INSPECTION, NORMOCEPHALIC - Eye Exam Eye Exam: EOMI, Normal appearance, PERRL Pupil Exam: NORMAL ACCOMODATION, PERRL - ENT Exam ENT Exam: Mucous Membranes Moist, Normal Exam - Neck Exam Neck Exam: Full ROM, Normal Inspection. absent: Lymphadenopathy - Respiratory Exam Respiratory Exam: Decreased Breath Sounds - Cardiovascular Exam Cardiovascular Exam: REGULAR RHYTHM, +S1, +S2 - GI/Abdominal Exam GI & Abdominal Exam: Soft, Diminished Bowel Sounds - Rectal Exam Rectal Exam: Deferred
[2017-12-19] MEDS: Piperacillin/Tazobact 3.375 GM in Sodium Chloride 100 ML IVPB SCH ×2 (17:09→21:34)
[2017-12-19] MEDS: Vancomycin 1 gm/NS 200 ml 1 GM/200 ML BAG IVPB SCH (21:34)
[2017-12-20] MEDS: Piperacillin/Tazobact 3.375 GM in Sodium Chloride 100 ML IVPB SCH ×4 (04:14→21:04)
[2017-12-20] MEDS: Sodium Chloride 0.9% 1,000 ML IV SCH (06:46)
[2017-12-20] MEDS: (Novolog) Insulin Aspart, Recombinant 100 u/ml 10 ml vial SC SCH ×4 (07:47→21:05)
[2017-12-20 08:34] LABS: BASO # 0.1 K/uL (0.0-0.2); EOS # 0.3 K/uL (0.0-0.7); EOS % 4.4 % (0.0-4.0); HEMOGLOBIN 12.4 g/dL (12.0-18.0); LYMPH # 1.7 K/uL (1.0-4.3); LYMPH % 25.1 % (20.0-40.0); MEAN CELL VOLUME 80.2 fL (80.0-94.0); MEAN CORPUSCULAR HGB CONC 33.7 g/dL (33.0-37.0); MEAN PLATELET VOLUME 8.8 fL (7.2-11.7); MONO # 0.6 K/uL (0.0-0.8); MONO % 9.2 % (0.0-10.0); NEUT # 4.1 K/uL (1.8-7.0); NEUT % 60.3 % (50.0-75.0); RBC 4.6 Mil/uL (4.40-5.90); RED CELL DISTRIBUTION WIDTH 14.3 % (11.5-14.5); WHITE BLOOD COUNT 6.9 K/uL (4.8-10.8)
[2017-12-20 08:58] LABS: ALBUMIN 3.5 g/dL (3.5-5.0); ALT/SGPT 19 U/L (21-72); AST/SGOT 16 U/L (17-59); BLOOD UREA NITROGEN 11 mg/dL (9-20); GFR AFRICAN-AMERICAN > 60; GFR NON-AFRICAN AMERICAN > 60; MAGNESIUM 1.7 mg/dL (1.6-2.3)
--- NOTE | 2017-12-20 09:50 | PN ---
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 PHYSICAL EXAMINATION: VITAL SIGNS: Blood pressure 123/66, mean artery pressure of 85, respiratory rate 16, temperature 97.9. NEUROLOGIC: The patient's examination which is unchanged to compare with my previous examination, manifesting with mild ataxic hemiparesis on his left side. The patient is ambulatory with minimal support of a cane. Speech is intact. From a neurological point of view, the patient has completed his workup. The patient is a good candidate for acute rehabilitation. When medically stable, the patient can be discharged and should have a followup visit with me as outpatient. Continue the present management from stroke point of view as discussed earlier. Sven Berg MD
[2017-12-20] MEDS: Enoxaparin 40 mg Syringe SC SCH (10:17)
--- NOTE | 2017-12-20 10:35 | CP.PCM.PN ---
<Brittany Wilson - Last Filed: 12/20/17 18:45> Subjective - Date & Time of Evaluation Date of Evaluation: 12/20/17 Time of Evaluation: 09:00 - Subjective Subjective: Cardiology progress note for Dr. Tejada, Patient seen and examined at bedside this morning. Patient denies chest pain, SOB, palpitations. Patient will need MARIYA with bubble study pending neurology request, Objective - Vital Signs/Intake and Output Vital Signs (last 24 hours): Temp Pulse Resp BP Pulse Ox 98.1 F 65 18 128/73 98 12/20/17 07:30 12/20/17 07:30 12/20/17 07:30 12/20/17 07:30 12/20/17 07:30 Intake and Output: 12/20/17 12/20/17 06:59 18:59 Intake Total 800 Output Total 500 Balance 300 - Medications Medications: Current Medications Aspirin (Ecotrin) 81 mg PO DAILY [facility] Last Admin: 12/20/17 10:17 Dose: 81 mg Enoxaparin Sodium (Lovenox) 40 mg SC DAILY [facility] Last Admin: 12/20/17 10:17 Dose: 40 mg Famotidine (Pepcid) 20 mg PO BID [facility] Last Admin: 12/20/17 10:18 Dose: 20 mg Hydrochlorothiazide (Hydrodiuril) 25 mg PO DAILY [facility] Last Admin: 12/20/17 10:18 Dose: 25 mg Vancomycin/Sodium Chloride (Vancomycin 1 Gm/Ns 200 Ml) 1 gm in 200 mls @ 166.7 mls/hr IVPB Q24H [facility] Stop: 12/22/17 21:46 Last Admin: 12/19/17 21:34 Dose: 166.7 mls/hr Piperacillin Sod/Tazobactam (Sod 3.375 gm/ Sodium Chloride) 100 mls @ 200 mls/ hr IVPB Q6H [facility] [place] Last Admin: 12/20/17 10:22 Dose: 200 mls/hr Insulin Aspart (Novolog) 0 unit SC ACHS [facility] PRN Reason: Protocol Last Admin: 12/20/17 07:47 Dose: Not Given Lisinopril (Zestril) 10 mg PO DAILY [facility] Last Admin: 12/20/17 10:18 Dose: 10 mg Metformin HCl (Glucophage) 1,000 mg PO BID [facility] Last Admin: 12/18/17 18:07 Dose: 1,000 mg Mupirocin (Bactroban Ointment) 1 gm TOP BID [facility] Last Admin: 12/19/17 17:10 Dose: 1 applic Rosuvastatin Calcium (Crestor) 10 mg PO [facility] Last Admin: 12/19/17 21:34 Dose: 10 mg - Labs Labs: 12/20/17 08:23 12/20/17 08:23 - Constitutional Appears: Non-toxic, No Acute Distress - Head Exam Head Exam: ATRAUMATIC, NORMAL INSPECTION - Eye Exam Eye Exam: EOMI - Respiratory Exam Respiratory Exam: Clear to Ausculation Bilateral, NORMAL BREATHING PATTERN. absent: Respiratory Distress - Cardiovascular Exam Cardiovascular Exam: REGULAR RHYTHM, +S1, +S2 - GI/Abdominal Exam GI & Abdominal Exam: Soft, Normal Bowel Sounds Assessment and Plan - Assessment and Plan (Free Text) Assessment: CVA MRI shows lacunar infarcts will need to rule out cardiac origins for stroke EKG - no ST changes will need to get MARIYA with bubble study (will likely do tomorrow or ), will discuss with neurology first, Dr. Berg ASA 81mg PO daily CHF EF 65% - diastolic grade 1 dysfunction, LVH Crestor 10mg PO HS Lisinopril 10mg PO daily Discussed with Dr. Tejada <Keyvn Tejada - Last Filed: 12/20/17 22:22> Objective - Vital Signs/Intake and Output Vital Signs (last 24 hours): Temp Pulse Resp BP Pulse Ox 98.2 F 71 16 146/71 99 12/20/17 15:52 12/20/17 16:59 12/20/17 15:52 12/20/17 15:52 12/20/17 15:52 Intake and Output: 12/20/1718 18:59 06:59 Intake Total 550 400 Output Total 300 250 Balance 250 150 - Medications Medications: Current Medications Aspirin (Ecotrin) 81 mg PO DAILY [facility] Last Admin: 12/20/17 10:17 Dose: 81 mg Enoxaparin Sodium (Lovenox) 40 mg SC DAILY [facility] [place] Last Admin: 12/20/17 10:17 Dose: 40 mg Famotidine (Pepcid) 20 mg PO BID [facility] Last Admin: 12/20/17 17:40 Dose: 20 mg Hydrochlorothiazide (Hydrodiuril) 25 mg PO DAILY [facility] Last Admin: 12/20/17 10:18 Dose: 25 mg Vancomycin/Sodium Chloride (Vancomycin 1 Gm/Ns 200 Ml) 1 gm in 200 mls @ 166.7 mls/hr IVPB Q24H [facility] Stop: 12/22/17 21:46 Last Admin: 12/20/17 21:03 Dose: 166.7 mls/hr Piperacillin Sod/Tazobactam (Sod 3.375 gm/ Sodium Chloride) 100 mls @ 200 mls/ hr IVPB Q6H [facility] [place] Last Admin: 12/20/17 21:04 Dose: 200 mls/hr Insulin Aspart (Novolog) 0 unit SC ACHS [facility] PRN Reason: Protocol Last Admin: 12/20/17 21:05 Dose: Not Given Lisinopril (Zestril) 10 mg PO DAILY [facility] Last Admin: 12/20/17 10:18 Dose: 10 mg Metformin HCl (Glucophage) 1,000 mg PO BID [facility] Last Admin: 12/18/17 18:07 Dose: 1,000 mg Mupirocin (Bactroban Ointment) 1 gm TOP BID [facility] Last Admin: 12/20/17 21:05 Dose: Not Given Rosuvastatin Calcium (Crestor) 10 mg PO HS [facility] Last Admin: 12/20/17 21:05 Dose: 10 mg - Labs Labs: 12/20/17 08:23 12/20/17 08:23 Assessment and Plan - Assessment and Plan (Free Text) Plan: Patient seen and evaluated personally by me. Lacunar infarcts (Non embolic) May not need MARIYA. await neurology input
--- NOTE | 2017-12-20 11:32 | CP.PCM.PN ---
<Matilde Moncada - Last Filed: 12/20/17 11:27> Subjective - Date & Time of Evaluation Date of Evaluation: 12/20/17 Time of Evaluation: 11:27 - Subjective Subjective: Podiatry Progress note for Dr. Gordon 67 year old male was seen at bedside regarding right 4th digit ulcer. He states that he is feeling better today. Denies any pain to his right foot. He denies any n/v/f/c/sob/cp. Objective - Vital Signs/Intake and Output Vital Signs (last 24 hours): Temp Pulse Resp BP Pulse Ox 98.1 F 65 18 128/73 98 12/20/17 07:30 12/20/17 07:30 12/20/17 07:30 12/20/17 07:30 12/20/17 07:30 Intake and Output: 12/20/17 12/20/17 06:59 18:59 Intake Total 800 Output Total 500 Balance 300 - Medications Medications: Current Medications Aspirin (Ecotrin) 81 mg PO DAILY [facility] Last Admin: 12/20/17 10:17 Dose: 81 mg Enoxaparin Sodium (Lovenox) 40 mg SC DAILY [facility] Last Admin: 12/20/17 10:17 Dose: 40 mg Famotidine (Pepcid) 20 mg PO BID [facility] Last Admin: 12/20/17 10:18 Dose: 20 mg Hydrochlorothiazide (Hydrodiuril) 25 mg PO DAILY [facility] Last Admin: 12/20/17 10:18 Dose: 25 mg Vancomycin/Sodium Chloride (Vancomycin 1 Gm/Ns 200 Ml) 1 gm in 200 mls @ 166.7 mls/hr IVPB Q24H [facility] Stop: 12/22/17 21:46 Last Admin: 12/19/17 21:34 Dose: 166.7 mls/hr Piperacillin Sod/Tazobactam (Sod 3.375 gm/ Sodium Chloride) 100 mls @ 200 mls/ hr IVPB Q6H [facility] Last Admin: 12/20/17 10:22 Dose: 200 mls/hr Insulin Aspart (Novolog) 0 unit SC ACHS [facility] PRN Reason: Protocol Last Admin: 12/20/17 07:47 Dose: Not Given Lisinopril (Zestril) 10 mg PO DAILY [facility] Last Admin: 12/20/17 10:18 Dose: 10 mg Metformin HCl (Glucophage) 1,000 mg PO BID [facility] Last Admin: 12/18/17 18:07 Dose: 1,000 mg Mupirocin (Bactroban Ointment) 1 gm TOP BID [facility] Last Admin: 12/20/17 10:28 Dose: 1 applic Rosuvastatin Calcium (Crestor) 10 mg PO HS [facility] Last Admin: 12/19/17 21:34 Dose: 10 mg - Labs Labs: 12/20/17 08:23 12/20/17 08:23 - Constitutional Appears: Well, Non-toxic, No Acute Distress - Extremities Exam Additional comments: lower extremity focused exam: Vasc: DP and PT pulses palpable 1/4 b/l. Skin temperature warm to cool from proximal to distal b/l, no edema noted. CFT <3 seconds to all digits. Derm:Stable eschar noted to the distalplantar aspect of the right 4th digit. Right 4th digit is edematous, no drainage, no probe to bone, no erythema, no malodor noted. callus noted to the left 3rd digit Neuro: Gross sensation diminished b/l Ortho: no tenderness on palpation to feet b/l - Neurological Exam Neurological Exam: Alert, Awake, Oriented x3 - Psychiatric Exam Psychiatric exam: Normal Affect, Normal Mood Assessment and Plan - Assessment and Plan (Free Text) Assessment: 67 year old male with diabetic foot wound Plan: patient examined and evaluated Discussed with attending, Dr. Gordon chart, labs, vitals reviewed;afebrile, WBC 6.9 right foot dressed with bactroban, xeroform, DSD bone scan IMPRESSION:Findings most compatible with cellulitis rather than osteomyelitis of the lateral right forefoot as discussed above. 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 will continue to follow patient while in house <Oziel Gordon - Last Filed: 12/20/17 21:10> Objective - Vital Signs/Intake and Output Vital Signs (last 24 hours): Temp Pulse Resp BP Pulse Ox 98.2 F 71 16 146/71 99 12/20/17 15:52 12/20/17 16:59 12/20/17 15:52 12/20/17 15:52 12/20/17 15:52 Intake and Output: 12/20/17 12/21/17 18:59 06:59 Intake Total 550 400 Output Total 300 Balance 250 400 - Medications Medications: Current Medications Aspirin (Ecotrin) 81 mg PO DAILY [facility] Last Admin: 12/20/17 10:17 Dose: 81 mg Enoxaparin Sodium (Lovenox) 40 mg SC DAILY [facility] Last Admin: 12/20/17 10:17 Dose: 40 mg Famotidine (Pepcid) 20 mg PO BID [facility] Last Admin: 12/20/17 17:40 Dose: 20 mg Hydrochlorothiazide (Hydrodiuril) 25 mg PO DAILY [facility] Last Admin: 12/20/17 10:18 Dose: 25 mg Vancomycin/Sodium Chloride (Vancomycin 1 Gm/Ns 200 Ml) 1 gm in 200 mls @ 166.7 mls/hr IVPB Q24H [facility] Stop: 12/22/17 21:46 Last Admin: 12/20/17 21:03 Dose: 166.7 mls/hr Piperacillin Sod/Tazobactam (Sod 3.375 gm/ Sodium Chloride) 100 mls @ 200 mls/ hr IVPB Q6H [facility] Last Admin: 12/20/17 21:04 Dose: 200 mls/hr Insulin Aspart (Novolog) 0 unit SC ACHS [facility] PRN Reason: Protocol Last Admin: 12/20/17 21:05 Dose: Not Given Lisinopril (Zestril) 10 mg PO DAILY [facility] Last Admin: 12/20/17 10:18 Dose: 10 mg Metformin HCl (Glucophage) 1,000 mg PO BID [facility] Last Admin: 12/18/17 18:07 Dose: 1,000 mg Mupirocin (Bactroban Ointment) 1 gm TOP BID [facility] Last Admin: 12/20/17 21:05 Dose: Not Given Rosuvastatin Calcium (Crestor) 10 mg PO HS [facility] Last Admin: 12/20/17 21:05 Dose: 10 mg - Labs Labs: 12/20/17 08:23 12/20/17 08:23 Assessment and Plan - Assessment and Plan (Free Text) Plan: patient seen at bedside this pm .agree with above findings . we will continue local wound care while in hospital ./DR GORDON
--- NOTE | 2017-12-20 12:46 | CP.PCM.PN ---
Subjective - Date & Time of Evaluation Date of Evaluation: 12/20/17 Time of Evaluation: 12:45 - Subjective Subjective: Progress note Attending: Dr. England. Pt seen and examined at bedside. No acute distress. No events overnight. Needs MARIYA. Bone scan negative for OM. Objective - Vital Signs/Intake and Output Vital Signs (last 24 hours): Temp Pulse Resp BP Pulse Ox 98.1 F 65 18 128/73 98 12/20/17 07:30 12/20/17 07:30 12/20/17 07:30 12/20/17 07:30 12/20/17 07:30 Intake and Output: 12/20/17 12/20/17 06:59 18:59 Intake Total 800 Output Total 500 Balance 300 - Medications Medications: Current Medications Aspirin (Ecotrin) 81 mg PO DAILY [facility] Last Admin: 12/20/17 10:17 Dose: 81 mg Enoxaparin Sodium (Lovenox) 40 mg SC DAILY [facility] Last Admin: 12/20/17 10:17 Dose: 40 mg Famotidine (Pepcid) 20 mg PO BID [facility] Last Admin: 12/20/17 10:18 Dose: 20 mg Hydrochlorothiazide (Hydrodiuril) 25 mg PO DAILY [facility] Last Admin: 12/20/17 10:18 Dose: 25 mg Vancomycin/Sodium Chloride (Vancomycin 1 Gm/Ns 200 Ml) 1 gm in 200 mls @ 166.7 mls/hr IVPB Q24H [facility] Stop: 12/22/17 21:46 Last Admin: 12/19/17 21:34 Dose: 166.7 mls/hr Piperacillin Sod/Tazobactam (Sod 3.375 gm/ Sodium Chloride) 100 mls @ 200 mls/ hr IVPB Q6H [facility] Last Admin: 12/20/17 10:22 Dose: 200 mls/hr Insulin Aspart (Novolog) 0 unit SC ACHS [facility] PRN Reason: Protocol Last Admin: 12/20/17 07:47 Dose: Not Given Lisinopril (Zestril) 10 mg PO DAILY [facility] Last Admin: 12/20/17 10:18 Dose: 10 mg Metformin HCl (Glucophage) 1,000 mg PO BID [facility] Last Admin: 12/18/17 18:07 Dose: 1,000 mg Mupirocin (Bactroban Ointment) 1 gm TOP BID [facility] Last Admin: 12/20/17 10:28 Dose: 1 applic Rosuvastatin Calcium (Crestor) 10 mg PO HS [facility] Last Admin: 12/19/17 21:34 Dose: 10 mg - Labs Labs: 12/20/17 08:23 12/20/17 08:23 - Constitutional Appears: Non-toxic, No Acute Distress - Head Exam Head Exam: ATRAUMATIC, NORMAL INSPECTION, NORMOCEPHALIC - Eye Exam Eye Exam: EOMI - ENT Exam ENT Exam: Mucous Membranes Moist - Respiratory Exam Respiratory Exam: NORMAL BREATHING PATTERN. absent: Respiratory Distress - Cardiovascular Exam Cardiovascular Exam: +S1, +S2 - GI/Abdominal Exam GI & Abdominal Exam: Soft, Normal Bowel Sounds. absent: Tenderness - Extremities Exam Extremities Exam: absent: Full ROM, Normal Inspection - Neurological Exam Neurological Exam: Alert, Awake, Oriented x3 Neuro motor strength exam: Left Upper Extremity: 4, Right Upper Extremity: 5, Left Lower Extremity: 4, Right Lower Extremity: 5 - Skin Skin Exam: Dry, Intact, Normal Color, Warm Assessment and Plan - Assessment and Plan (Free Text) Assessment: This is a 67 yo male with 1. R/O diabetic foot ulcer -bone scan negative for osteo -podiatry consult. DR SCHRADER. recs appreciated. -asa 81 daily -unremarkable CT angiogram with runoff of abdomen and pelvis -venous duplex right lower extremity- within normal limits -carotid dopplers- within normal limits -continue IV vanco -continue IV zosyn -blood cultures negative so far. -ID consult. recs appreciated. -vascular sx consult. DR TOVAR. recs appreciated. 2. Left hemiparesis -code stroke was called overnight, but per note by Dr. Herzog, all findings were previously noted. -head CT performed overnight was negative for any acute intracranial abnormality or bleed; showed age indeterminate infarcts. -pt was transferred to telemetry. -pt has subacute process. -neurology consult. DR HERZOG. recs appreciated. -continue asa 81 mg po daily -continue crestor -likely subacute ischemic process -brain MRI shows chronic changes, small vessel disease, periventricular ischemic changes -continue physical therapy -continue lovenox 40 daily -cardiology consult. recs appreciated. -echo shows normal LV function, borderline LVH, borderline diastolic dysfunction. -MARIYA with bubble study pending 2. hx of HLD -continue crestor PO HS 3. hx of DM -hold metformin for now -continue lisinopril 10 mg PO daily -continue ISS 4. hx of HTN -continue HCTZ 25 daily -continue lisinopril 10 mg po daily 4. GI/DVT ppx -lovenox 40 mg sc daily -pepcid 20 mg bid [facility]
--- NOTE | 2017-12-20 14:05 | CP.PCM.PN ---
Subjective - Date & Time of Evaluation Date of Evaluation: 12/20/17 Time of Evaluation: 12:20 - Subjective Subjective: clinically same Objective - Vital Signs/Intake and Output Vital Signs (last 24 hours): Temp Pulse Resp BP Pulse Ox 98.1 F 65 18 128/73 98 12/20/17 07:30 12/20/17 07:30 12/20/17 07:30 12/20/17 07:30 12/20/17 07:30 Intake and Output: 12/20/17 12/20/17 06:59 18:59 Intake Total 800 Output Total 500 Balance 300 - Medications Medications: Current Medications Aspirin (Ecotrin) 81 mg PO DAILY [facility] Last Admin: 12/20/17 10:17 Dose: 81 mg Enoxaparin Sodium (Lovenox) 40 mg SC DAILY [facility] Last Admin: 12/20/17 10:17 Dose: 40 mg Famotidine (Pepcid) 20 mg PO BID [facility] Last Admin: 12/20/17 10:18 Dose: 20 mg Hydrochlorothiazide (Hydrodiuril) 25 mg PO DAILY [facility] Last Admin: 12/20/17 10:18 Dose: 25 mg Vancomycin/Sodium Chloride (Vancomycin 1 Gm/Ns 200 Ml) 1 gm in 200 mls @ 166.7 mls/hr IVPB Q24H [facility] Stop: 12/22/17 21:46 Last Admin: 12/19/17 21:34 Dose: 166.7 mls/hr Piperacillin Sod/Tazobactam (Sod 3.375 gm/ Sodium Chloride) 100 mls @ 200 mls/ hr IVPB Q6H [facility] Last Admin: 12/20/17 10:22 Dose: 200 mls/hr Insulin Aspart (Novolog) 0 unit SC [facility] PRN Reason: Protocol Last Admin: 12/20/17 11:30 Dose: Not Given Lisinopril (Zestril) 10 mg PO DAILY [facility] Last Admin: 12/20/17 10:18 Dose: 10 mg Metformin HCl (Glucophage) 1,000 mg PO BID [facility] Last Admin: 12/18/17 18:07 Dose: 1,000 mg Mupirocin (Bactroban Ointment) 1 gm TOP BID [facility] Last Admin: 12/20/17 10:28 Dose: 1 applic Rosuvastatin Calcium (Crestor) 10 mg PO [facility] Last Admin: 12/19/17 21:34 Dose: 10 mg - Labs Labs: 12/20/17 08:23 12/20/17 08:23 - Constitutional Appears: Well - Head Exam Head Exam: ATRAUMATIC, NORMAL INSPECTION, NORMOCEPHALIC - Eye Exam Eye Exam: EOMI, Normal appearance, PERRL Pupil Exam: NORMAL ACCOMODATION, PERRL - ENT Exam ENT Exam: Mucous Membranes Moist, Normal Exam - Neck Exam Neck Exam: Full ROM, Normal Inspection. absent: Lymphadenopathy - Respiratory Exam Respiratory Exam: Decreased Breath Sounds - Cardiovascular Exam Cardiovascular Exam: REGULAR RHYTHM, +S1, +S2 - GI/Abdominal Exam GI & Abdominal Exam: Soft, Diminished Bowel Sounds - Rectal Exam Rectal Exam: Deferred Assessment and Plan - Assessment and Plan (Free Text) Plan: 1. R/O diabetic foot ulcer -bone scan negative for osteo -podiatry consult. DR SCHRADER. recs appreciated. -asa 81 daily -unremarkable CT angiogram with runoff of abdomen and pelvis -venous duplex right lower extremity- within normal limits -carotid dopplers- within normal limits -continue IV vanco -continue IV zosyn -blood cultures negative so far. -ID consult. recs appreciated. -vascular sx consult. DR TOVAR. recs appreciated. 2. Left hemiparesis -code stroke was called overnight, but per note by Dr. Berg, all findings were previously noted. -head CT performed overnight was negative for any acute intracranial abnormality or bleed; showed age indeterminate infarcts. -pt was transferred to telemetry. -pt has subacute process. -neurology consult. DR BERG. recs appreciated. -continue asa 81 mg po daily -continue crestor -likely subacute ischemic process -brain MRI shows chronic changes, small vessel disease, periventricular ischemic changes -continue physical therapy -continue lovenox 40 daily -cardiology consult. recs appreciated. -echo shows normal LV function, borderline LVH, borderline diastolic dysfunction. -MARIYA with bubble study pending 2. hx of HLD -continue crestor PO HS 3. hx of DM -hold metformin for now -continue lisinopril 10 mg PO daily -continue ISS 4. hx of HTN -continue HCTZ 25 daily -continue lisinopril 10 mg po daily 4. GI/DVT ppx -lovenox 40 mg sc daily -pepcid 20 mg bid
--- NOTE | 2017-12-20 15:02 | CP.PCM.PN ---
Subjective - Date & Time of Evaluation Date of Evaluation: 12/20/17 Time of Evaluation: 11:30 - Subjective Subjective: Vascular Surgery- Dr. Mcadams Pt S&E at bedside this AM. no new complaints. Dressing C/D/I Objective - Vital Signs/Intake and Output Vital Signs (last 24 hours): Temp Pulse Resp BP Pulse Ox 98.1 F 65 18 128/73 98 12/20/17 07:30 12/20/17 07:30 12/20/17 07:30 12/20/17 07:30 12/20/17 07:30 Intake and Output: 12/20/17 12/20/17 06:59 18:59 Intake Total 800 550 Output Total 500 Balance 300 550 - Medications Medications: Current Medications Aspirin (Ecotrin) 81 mg PO DAILY [facility] Last Admin: 12/20/17 10:17 Dose: 81 mg Enoxaparin Sodium (Lovenox) 40 mg SC DAILY [facility] Last Admin: 12/20/17 10:17 Dose: 40 mg Famotidine (Pepcid) 20 mg PO BID [facility] Last Admin: 12/20/17 10:18 Dose: 20 mg Hydrochlorothiazide (Hydrodiuril) 25 mg PO DAILY [facility] Last Admin: 12/20/17 10:18 Dose: 25 mg Vancomycin/Sodium Chloride (Vancomycin 1 Gm/Ns 200 Ml) 1 gm in 200 mls @ 166.7 mls/hr IVPB Q24H [facility] Stop: 12/22/17 21:46 Last Admin: 12/19/17 21:34 Dose: 166.7 mls/hr Piperacillin Sod/Tazobactam (Sod 3.375 gm/ Sodium Chloride) 100 mls @ 200 mls/ hr IVPB Q6H [facility] Last Admin: 12/20/17 10:22 Dose: 200 mls/hr Insulin Aspart (Novolog) 0 unit SC ACHS [facility] PRN Reason: Protocol Last Admin: 12/20/17 11:30 Dose: Not Given Lisinopril (Zestril) 10 mg PO DAILY [facility] Last Admin: 12/20/17 10:18 Dose: 10 mg Metformin HCl (Glucophage) 1,000 mg PO BID [facility] Last Admin: 12/18/17 18:07 Dose: 1,000 mg Mupirocin (Bactroban Ointment) 1 gm TOP BID [facility] Last Admin: 12/20/17 10:28 Dose: 1 applic Rosuvastatin Calcium (Crestor) 10 mg PO HS [facility] Last Admin: 12/19/17 21:34 Dose: 10 mg - Labs Labs: 12/20/17 08:23 12/20/17 08:23 - Constitutional Appears: Non-toxic, No Acute Distress - Eye Exam Eye Exam: EOMI. absent: Scleral icterus - ENT Exam ENT Exam: Mucous Membranes Moist - Respiratory Exam Respiratory Exam: NORMAL BREATHING PATTERN. absent: Accessory Muscle Use, Respiratory Distress - Cardiovascular Exam Cardiovascular Exam: +S1, +S2. absent: Bradycardia, Tachycardia - GI/Abdominal Exam GI & Abdominal Exam: Soft. absent: Firm, Guarding, Rigid, Tenderness - Extremities Exam Extremities Exam: absent: Calf Tenderness Additional comments: dressing C/D/I - Neurological Exam Neurological Exam: Alert, Awake, Oriented x3 - Skin Skin Exam: Intact, Warm Assessment and Plan - Assessment and Plan (Free Text) Assessment: 67 y/o M w/ diabetic foot wound and sudden-onset weakness; cellulitis no signs of osteo Plan: plan for intervention during this hospital visit local wound care per c/s podiatry all res apprecaited medical management per primary discussed w/ Dr. Mcadams surgical attending [employer] [id number]
[2017-12-20] MEDS: Vancomycin 1 gm/NS 200 ml 1 GM/200 ML BAG IVPB SCH (21:03)
[2017-12-21 02:26] VITALS: RESP 20
[2017-12-21] MEDS: Piperacillin/Tazobact 3.375 GM in Sodium Chloride 100 ML IVPB SCH ×2 (04:32→11:09)
[2017-12-21] MEDS: (Novolog) Insulin Aspart, Recombinant 100 u/ml 10 ml vial SC SCH ×2 (07:56→12:43)
[2017-12-21 08:14] LABS: BASO # 0.1 K/uL (0.0-0.2); BASO % 0.8 % (0.0-2.0); EOS # 0.4 K/uL (0.0-0.7); EOS % 5.6 % (0.0-4.0); HEMOGLOBIN 12.2 g/dL (12.0-18.0); LYMPH # 1.3 K/uL (1.0-4.3); LYMPH % 17.7 % (20.0-40.0); MEAN CELL VOLUME 80.1 fL (80.0-94.0); MEAN CORPUSCULAR HEMOGLOBIN 26.9 pg (27.0-31.0); MEAN CORPUSCULAR HGB CONC 33.6 g/dL (33.0-37.0); MEAN PLATELET VOLUME 8.6 fL (7.2-11.7); MONO # 0.8 K/uL (0.0-0.8); MONO % 10.6 % (0.0-10.0); NEUT # 4.7 K/uL (1.8-7.0); NEUT % 65.3 % (50.0-75.0); RBC 4.53 Mil/uL (4.40-5.90); RED CELL DISTRIBUTION WIDTH 14.7 % (11.5-14.5); WHITE BLOOD COUNT 7.2 K/uL (4.8-10.8)
[2017-12-21 08:43] LABS: ALBUMIN 3.5 g/dL (3.5-5.0); ALT/SGPT 26 U/L (21-72); AST/SGOT 21 U/L (17-59); BLOOD UREA NITROGEN 12 mg/dL (9-20); CALCIUM 8.9 mg/dl (8.6-10.4); GFR AFRICAN-AMERICAN > 60; GFR NON-AFRICAN AMERICAN > 60; MAGNESIUM 1.7 mg/dL (1.6-2.3)
--- NOTE | 2017-12-21 09:03 | CP.PCM.PN ---
Subjective - Date & Time of Evaluation Date of Evaluation: 12/21/17 Time of Evaluation: 06:55 - Subjective Subjective: Vascular Surgery Pt S&E, no issues overnight. Still complaining of weakness in lower extremities. Objective - Vital Signs/Intake and Output Vital Signs (last 24 hours): Temp Pulse Resp BP Pulse Ox 98.5 F 66 20 106/60 97 12/20/17 23:50 12/21/17 04:00 12/20/17 23:50 12/20/17 23:50 12/20/17 23:50 Intake and Output: 12/21/17 12/21/17 06:59 18:59 Intake Total 500 Output Total 550 Balance -50 - Medications Medications: Current Medications Aspirin (Ecotrin) 81 mg PO DAILY [facility] Last Admin: 12/20/17 10:17 Dose: 81 mg Enoxaparin Sodium (Lovenox) 40 mg SC DAILY [facility] Last Admin: 12/20/17 10:17 Dose: 40 mg Famotidine (Pepcid) 20 mg PO BID [facility] Last Admin: 12/20/17 17:40 Dose: 20 mg Hydrochlorothiazide (Hydrodiuril) 25 mg PO DAILY [facility] Last Admin: 12/20/17 10:18 Dose: 25 mg Vancomycin/Sodium Chloride (Vancomycin 1 Gm/Ns 200 Ml) 1 gm in 200 mls @ 166.7 mls/hr IVPB Q24H [facility] Stop: 12/22/17 21:46 Last Admin: 12/20/17 21:03 Dose: 166.7 mls/hr Piperacillin Sod/Tazobactam (Sod 3.375 gm/ Sodium Chloride) 100 mls @ 200 mls/ hr IVPB Q6H [facility] Last Admin: 12/21/17 04:32 Dose: 200 mls/hr Insulin Aspart (Novolog) 0 unit SC ACHS [facility] PRN Reason: Protocol Last Admin: 12/21/17 07:56 Dose: 1 unit Lisinopril (Zestril) 10 mg PO DAILY [facility] Last Admin: 12/20/17 10:18 Dose: 10 mg Metformin HCl (Glucophage) 1,000 mg PO BID [facility] Last Admin: 12/18/17 18:07 Dose: 1,000 mg Mupirocin (Bactroban Ointment) 1 gm TOP BID [facility] Last Admin: 12/20/17 21:05 Dose: Not Given Rosuvastatin Calcium (Crestor) 10 mg PO HS [facility] Last Admin: 12/20/17 21:05 Dose: 10 mg Sitagliptin Phosphate (Januvia) 50 mg PO DAILY [facility] - Labs Labs: 12/21/17 08:03 12/21/17 08:03 - Constitutional Appears: Non-toxic, No Acute Distress - Head Exam Head Exam: ATRAUMATIC, NORMOCEPHALIC - Eye Exam Eye Exam: EOMI. absent: Scleral icterus - Respiratory Exam Respiratory Exam: NORMAL BREATHING PATTERN. absent: Respiratory Distress - GI/Abdominal Exam GI & Abdominal Exam: Soft. absent: Distended, Tenderness - Extremities Exam Extremities Exam: absent: Calf Tenderness Additional comments: dressing C/D/I - Neurological Exam Neurological Exam: Alert, Awake - Skin Skin Exam: Warm. absent: Dry Assessment and Plan - Assessment and Plan (Free Text) Assessment: 67M w/ diabetic foot wound Plan: Will need angiogram at some point. Pt has declined it at this time saying he wants to go home. Pt can follow up in the office to plan angio. No Immediate surgical intervention planned. D/W Dr. Pema Schultz PGY4
[2017-12-21 09:06] VITALS: PULSE 63
[2017-12-21 09:47] VITALS: BP 159/83; TEMP 97.2; O2SAT 100
--- NOTE | 2017-12-21 09:50 | PN ---
DATE: 12/21/2017. TIME OF EVALUATION: 6:15 a.m. NEUROLOGIC PROBLEM: Left hemiparesis secondary to right subcortical dysfunction from small vessel disease. PHYSICAL EXAMINATION: VITAL SIGNS: Blood pressure 106/60, mean artery pressure of 75, respiratory rate 18, temperature 98.5, pulse rate 72. NEUROLOGIC: The patient is more awake, alert and oriented to person, place and time. Cranial nerve examination, mild left flattening of the nasolabial fold. Left mild hemiparesis with dysmetria noted on his left side which all are unchanged since his admission. The patient has completed his all workup from neurology more than 2 days ago. At present, the patient should be get out of the bed and physical therapy. When medically stable, the patient should be discharged and should have followup visit with me as outpatient. Abstinence from smoking, blood pressure control, cholesterol control and continuing antiplatelets prevent stroke, all been discussed with the patient. Diabetic control and foot care should be taken care as he has been taking at present. At present signing him off for followup. Sven Berg MD
--- NOTE | 2017-12-21 09:52 | CP.PCM.PN ---
Subjective - Date & Time of Evaluation Date of Evaluation: 12/21/17 Time of Evaluation: 09:53 - Subjective Subjective: PGY2 Note for Dr. Saul Escobar; all management as per Dr. Saul Escobar This patient is stable for d/c as per Dr. Saul Escobar. He has no complaints today; states he wants to go home; denies fevers/chills, WISE, CP, SOb, abdominal pain, N /V/D, dysuria/freq/urg or lower extremity pain/swelling. Objective - Vital Signs/Intake and Output Vital Signs (last 24 hours): Temp Pulse Resp BP Pulse Ox 97.2 F L 63 20 159/83 H 100 12/21/17 08:46 12/21/17 08:58 12/21/17 08:46 12/21/17 08:46 12/21/17 08:46 Intake and Output: 12/21/17 12/21/17 06:59 18:59 Intake Total 500 Output Total 550 Balance -50 - Medications Medications: Current Medications Aspirin (Ecotrin) 81 mg PO DAILY [facility] Last Admin: 12/20/17 10:17 Dose: 81 mg Enoxaparin Sodium (Lovenox) 40 mg SC DAILY [facility] Last Admin: 12/20/17 10:17 Dose: 40 mg Famotidine (Pepcid) 20 mg PO BID [facility] Last Admin: 12/20/17 17:40 Dose: 20 mg Hydrochlorothiazide (Hydrodiuril) 25 mg PO DAILY [facility] Last Admin: 12/20/17 10:18 Dose: 25 mg Vancomycin/Sodium Chloride (Vancomycin 1 Gm/Ns 200 Ml) 1 gm in 200 mls @ 166.7 mls/hr IVPB Q24H [facility] Stop: 12/22/17 21:46 Last Admin: 12/20/17 21:03 Dose: 166.7 mls/hr Piperacillin Sod/Tazobactam (Sod 3.375 gm/ Sodium Chloride) 100 mls @ 200 mls/ hr IVPB Q6H [facility] Last Admin: 12/21/17 04:32 Dose: 200 mls/hr Insulin Aspart (Novolog) 0 unit SC ACHS [facility] PRN Reason: Protocol Last Admin: 12/21/17 07:56 Dose: 1 unit Lisinopril (Zestril) 10 mg PO DAILY [facility] Last Admin: 12/20/17 10:18 Dose: 10 mg Metformin HCl (Glucophage) 1,000 mg PO BID [facility] Last Admin: 12/18/17 18:07 Dose: 1,000 mg Mupirocin (Bactroban Ointment) 1 gm TOP BID [facility] Last Admin: 12/20/17 21:05 Dose: Not Given Rosuvastatin Calcium (Crestor) 10 mg PO HS [facility] Last Admin: 12/20/17 21:05 Dose: 10 mg Sitagliptin Phosphate (Januvia) 50 mg PO DAILY [facility] - Labs Labs: 12/21/17 08:03 12/21/17 08:03 - Constitutional Appears: Well, Non-toxic - Head Exam Head Exam: ATRAUMATIC - Eye Exam Eye Exam: EOMI, Normal appearance - ENT Exam ENT Exam: Mucous Membranes Moist - Neck Exam Neck Exam: Full ROM. absent: Lymphadenopathy - Respiratory Exam Respiratory Exam: Clear to Ausculation Bilateral, NORMAL BREATHING PATTERN. absent: Rales, Rhonchi, Wheezes - Cardiovascular Exam Cardiovascular Exam: REGULAR RHYTHM, +S1, +S2 - GI/Abdominal Exam GI & Abdominal Exam: Soft, Normal Bowel Sounds. absent: Tenderness - Extremities Exam Extremities Exam: Calf Tenderness. absent: Full ROM (There is a small infection on the ring pointer toe of the right foot, black eschar noted on the ring finger toe ) - Back Exam Back Exam: NORMAL INSPECTION. absent: CVA tenderness (L), CVA tenderness (R) - Neurological Exam Neurological Exam: Alert, Awake, Normal Gait, Oriented x3 (gait normal with cane ) - Psychiatric Exam Psychiatric exam: Normal Affect, Normal Mood - Skin Skin Exam: Warm Assessment and Plan - Assessment and Plan (Free Text) Assessment: This is a 67 yo male with 1.Diabetic foot infection -bone scan negative for osteo -podiatry consult. DR SCHRADER. recs appreciated. -asa 81 daily -venous duplex right lower extremity- within normal limits -carotid dopplers- within normal limits -continue IV vanco -continue IV zosyn -blood cultures negative so far. -ID consult. recs appreciated. -vascular sx consult. DR TOVAR. recs appreciated. Pt to f/.u with outpatient surgery for angiogram at his leisure patient will be d/c on bactrim for 10 more days for infection patient will also have januvia added to DM regimen; encouraged to exercise more 4pt Cane also given to patient 2. Left hemiparesis code stroke was called overnight, but per note by Dr. Herzog, all findings were previously noted. -head CT performed overnight was negative for any acute intracranial abnormality or bleed; showed age indeterminate infarcts. -pt was transferred to telemetry. -pt has subacute process. -neurology consult. DR HERZOG. recs appreciated. -continue asa 81 mg po daily -continue crestor -likely subacute ischemic process -brain MRI shows chronic changes, small vessel disease, periventricular ischemic changes -continue physical therapy -continue lovenox 40 daily -cardiology consult. recs appreciated. -echo shows normal LV function, borderline LVH, borderline diastolic dysfunction. -MARIYA shows diastolic dysfunction; patient already on treatment for HTN normal EF ; not new finding 2. hx of HLD -continue crestor PO HS 3. hx of DM -c/w metformin -add januvia -continue lisinopril 10 mg PO daily -continue ISS 4. hx of HTN -continue HCTZ 25 daily -continue lisinopril 10 mg po daily 4. GI/DVT ppx -lovenox 40 mg sc daily -pepcid 20 mg bid The patient is stable for d/c as per Dr. Saul Escobar
--- NOTE | 2017-12-21 10:03 | EEG ---
DATE: 12/18/2017 This is a 16-channel electroencephalogram of awake and drowsy adult. During the study, photic stimulation was performed. Hyperventilation was not performed. The resting electroencephalogram consists of 40 to 50 microvolt, moderate voltage 9 to 11 Hz alpha activities seen at parietal and occipital leads. These alpha activities symmetrically attenuated with a opening. The photic stimulation did not evoke driving response noted at 2 to 20 Hz. IMPRESSION: This is a normal electroencephalogram of awake and drowsy adult. There was neither electroencephalographic paroxysmal activities nor focal slowing noted. Sven Berg MD
--- NOTE | 2017-12-21 11:05 | CP.PCM.PN ---
Subjective - Date & Time of Evaluation Date of Evaluation: 12/21/17 Time of Evaluation: 09:00 - Subjective Subjective: Cardiology progress note for Dr. Tejada, Patient seen and examined at bedside this morning. Patient denies chest pain, SOB, palpitations. Patient would like to go home. Objective - Vital Signs/Intake and Output Vital Signs (last 24 hours): Temp Pulse Resp BP Pulse Ox 97.2 F L 63 20 159/83 H 100 12/21/17 08:46 12/21/17 08:58 12/21/17 08:46 12/21/17 08:46 12/21/17 08:46 Intake and Output: 12/21/17 12/21/17 06:59 18:59 Intake Total 500 Output Total 550 Balance -50 - Medications Medications: Current Medications Aspirin (Ecotrin) 81 mg PO DAILY [facility] Last Admin: 12/20/17 10:17 Dose: 81 mg Enoxaparin Sodium (Lovenox) 40 mg SC DAILY [facility] Last Admin: 12/20/17 10:17 Dose: 40 mg Famotidine (Pepcid) 20 mg PO BID [facility] Last Admin: 12/20/17 17:40 Dose: 20 mg Hydrochlorothiazide (Hydrodiuril) 25 mg PO DAILY [facility] Last Admin: 12/20/17 10:18 Dose: 25 mg Vancomycin/Sodium Chloride (Vancomycin 1 Gm/Ns 200 Ml) 1 gm in 200 mls @ 166.7 mls/hr IVPB Q24H [facility] Stop: 12/22/17 21:46 Last Admin: 12/20/17 21:03 Dose: 166.7 mls/hr Piperacillin Sod/Tazobactam (Sod 3.375 gm/ Sodium Chloride) 100 mls @ 200 mls/ hr IVPB Q6H [facility] [place] Last Admin: 12/21/17 04:32 Dose: 200 mls/hr Insulin Aspart (Novolog) 0 unit SC ACHS [facility] PRN Reason: Protocol Last Admin: 12/21/17 07:56 Dose: 1 unit Lisinopril (Zestril) 10 mg PO DAILY [facility] [place] Last Admin: 12/20/17 10:18 Dose: 10 mg Metformin HCl (Glucophage) 1,000 mg PO BID [facility] [place] Last Admin: 12/18/17 18:07 Dose: 1,000 mg Mupirocin (Bactroban Ointment) 1 gm TOP BID [facility] [place] Last Admin: 12/20/17 21:05 Dose: Not Given Rosuvastatin Calcium (Crestor) 10 mg PO HS [facility] Last Admin: 12/20/17 21:05 Dose: 10 mg Sitagliptin Phosphate (Januvia) 50 mg PO DAILY [facility] - Labs Labs: 12/21/17 08:03 12/21/17 08:03 - Constitutional Appears: Non-toxic, No Acute Distress - Head Exam Head Exam: NORMAL INSPECTION - Eye Exam Eye Exam: EOMI - ENT Exam ENT Exam: Mucous Membranes Moist - Respiratory Exam Respiratory Exam: Clear to Ausculation Bilateral, NORMAL BREATHING PATTERN - Cardiovascular Exam Cardiovascular Exam: REGULAR RHYTHM, +S1, +S2 - GI/Abdominal Exam GI & Abdominal Exam: Soft, Normal Bowel Sounds. absent: Tenderness - Back Exam Back Exam: NORMAL INSPECTION - Neurological Exam Neurological Exam: Alert, Awake, CN II-XII Intact, Oriented x3 Assessment and Plan - Assessment and Plan (Free Text) Assessment: CVA MRI shows lacunar infarcts (likely secondary for HTN, nonembolic) will need to rule out cardiac origins for stroke EKG - no ST changes No need for MARIYA ASA 81mg PO daily CHF EF 65% - diastolic grade 1 dysfunction, LVH Crestor 10mg PO HS Lisinopril 10mg PO daily Patient to follow up outpatient in one month with Dr. Tejada Discussed with Dr. Tejada
[2017-12-21] MEDS: Enoxaparin 40 mg Syringe SC SCH (11:09)
--- NOTE | 2017-12-22 07:55 | PCM.HF ---
Heart Failure Core Measure - Heart Failure Ejection Fraction: 40 % or Greater MOR Inhibitor Prescribed: Yes Beta-Carmen Prescribed: None Contraindication/Reason for not providing: chronic cough Angiotensin II Receptor Carmen Prescribed: No Contraindication/Reason for not providing: on mor AnticoagulationTherapy for Atrial Fibrillation/Atrialflutter: No Contraindication/Reason for not providing: no hx of a fib Aldosterone Antagonist Prescribed: No Contraindication/Reason for not providing: ef>45 Hydralazine Nitrate Prescribed: No Contraindication/Reason for not providing: ef>45 Implantable Cardioverter Defibrillator Therapy: No Contraindication/Reason for not providing: ef>45 Cardiac Resynchronization Therapy Prescribed: No Contraindication/Reason for not providing: ef.45 - Follow up Will be discharged to: Home Follow Up Date (must be within 7 days from discharge): 12/26/17 Follow Up Time: 09:00
== END 2017-12-21 13:36 | DRG 638 ==
LOC: C.ER 10:54 → C.9E 15:53 → C.3T 12-18 01:38 → C.6T 12-19 00:46 → OBSVTOIN 12-19 16:17
PROVIDERS: ADMIT Internal Medicine Nephrology; ATTEND Internal Medicine Nephrology
DX: E11.621 Type 2 diabetes mellitus with foot ulcer (principal); G81.94 Hemiplegia, unspecified affecting left nondominant side; E11.40 Type 2 diabetes mellitus with diabetic neuropathy, unspecified; E11.51 Type 2 diabetes mellitus with diabetic peripheral angiopathy without gangrene; L03.90 Cellulitis, unspecified; I50.9 Heart failure, unspecified; I63.9 Cerebral infarction, unspecified; E78.5 Hyperlipidemia, unspecified; F17.210 Nicotine dependence, cigarettes, uncomplicated; I11.0 Hypertensive heart disease with heart failure; I35.1 Nonrheumatic aortic (valve) insufficiency; I65.29 Occlusion and stenosis of unspecified carotid artery; Z79.82 Long term (current) use of aspirin; Z79.899 Other long term (current) drug therapy

== ENCOUNTER 2019-02-26 20:23 | Emergency (ER) | payer MEDICARE, OTHER ==
[2019-02-26 20:24] VITALS: BMI 22.4
[2019-02-26] MEDS ORDERED: Iodixanol 320 MG/ML 100 ML BOTTLE IV ONE (21:32)
[2019-02-26 21:47] LABS: BASO # 0.1 K/uL (0.0-0.2); BASO % 0.8 % (0.0-2.0); EOS # 0.4 K/uL (0.0-0.7); EOS % 4.8 % (0.0-4.0); LYMPH # 2.1 K/uL (1.0-4.3); LYMPH % 28.8 % (20.0-40.0); MEAN CELL VOLUME 82.2 fL (80.0-94.0); MEAN CORPUSCULAR HEMOGLOBIN 27.5 pg (27.0-31.0); MEAN CORPUSCULAR HGB CONC 33.5 g/dL (33.0-37.0); MONO # 0.8 K/uL (0.0-0.8); MONO % 10.8 % (0.0-10.0); NEUT % 54.8 % (50.0-75.0); RBC 4.38 Mil/uL (4.40-5.90); RED CELL DISTRIBUTION WIDTH 14.9 % (11.5-14.5); WHITE BLOOD COUNT 7.3 K/uL (4.8-10.8)
[2019-02-26 21:50] LABS: URINE BILIRUBIN NEGATIVE (NEGATIVE); URINE BLOOD NEGATIVE (NEGATIVE); URINE CLARITY Clear (Clear); URINE COLOR Straw (YELLOW); URINE GLUCOSE (UA) NORMAL (Normal); URINE LEUKOCYTE ESTERASE NEG Leu/uL (Negative); URINE PROTEIN 2+ mg/dL (NEGATIVE); URINE UROBILINOGEN NORMAL mg/dL (0.2-1.0)
[2019-02-26 21:58] LABS: ALB/GLOB RATIO 1.2 (1.0-2.1); ALBUMIN 4.3 g/dL (3.5-5.0); ALT/SGPT 22 U/L (21-72); AST/SGOT 22 U/L (17-59); BLOOD UREA NITROGEN 13 mg/dL (9-20); CALCIUM 9.4 mg/dl (8.6-10.4); GFR NON-AFRICAN AMERICAN > 60
--- NOTE | 2019-02-26 22:35 | C.PDOC ---
History Of Present Illness 68 year old male presents to the ED c/o RLQ abdominal pain for the past 2-3 days. Patient reports eating well, tolerating PO. Patient also reports his blood pressure being very high, measured with his monitor at home. Patient reports taking his evening dose of blood pressure medications [employer]. Patient denies fever, chills, headache, visual changes, CP, SOB, palpitations, nausea, vomit, diarrhea, constipation. Chief Complaint (Nursing): High Blood Pressure History Per: Patient History/Exam Limitations: no limitations Onset/Duration Of Symptoms: Days (2-3) Current Symptoms Are (Timing): Still Present Quality Of Symptoms: Asymptomatic Recent travel outside of the [place]: No Additional History Per: Patient Past Medical History Reviewed: Historical Data, Nursing Documentation, Vital Signs Vital Signs: Last Vital Signs Temp 98.6 F 02/26/19 20:41 Pulse 70 02/26/19 20:41 Resp 18 02/26/19 20:41 BP 202/92 H 02/26/19 20:41 Pulse Ox 100 02/26/19 20:41 Primary Care Provider: Alissa Escobar Medical History PMH: Diabetes, HTN Surgical History: No Surg Hx Family History: States: Unknown Family Hx - Social History Hx Tobacco Use: Yes Hx Alcohol Use: No Hx Substance Use: No Review Of Systems Constitutional: Negative for: Fever, Chills Cardiovascular: Negative for: Chest Pain Respiratory: Negative for: Cough, Shortness of Breath Gastrointestinal: Positive for: Abdominal Pain. Negative for: Nausea, Vomiting, Diarrhea Skin: Negative for: Rash Neurological: Negative for: Weakness, Numbness, Headache, Dizziness Physical Exam - Physical Exam Appears: Non-toxic, No Acute Distress Skin: Normal Color, Warm, Dry Head: Atraumatic, Normacephalic Eye(s): bilateral: Normal Inspection Neck: Normal ROM, Supple Chest: Symmetrical Cardiovascular: Rhythm Regular, Murmur (aortic systolic) Respiratory: Normal Breath Sounds, No Rales, No Rhonchi, No Wheezing Gastrointestinal/Abdominal: Soft, Tenderness (minimal RLQ), No Guarding, No Rebound Extremity: Normal ROM, No Tenderness, No Swelling Neurological/Psych: Oriented x3, Normal Speech, Normal Cognition Gait: Steady ED Course And Treatment - Laboratory Results Result Diagrams: 02/26/19 21:44 02/26/19 21:44 Lab Results: Troponin I < 0.0120 ng/mL (0.00-0.120) 02/26/19 21:44 Total Bilirubin 0.4 mg/dL (0.2-1.3) 02/26/19 21:44 AST 22 U/L (17-59) 02/26/19 21:44 ALT 22 U/L (21-72) 02/26/19 21:44 Alkaline Phosphatase 44 U/L (38-126) 02/26/19 21:44 Total Protein 7.9 g/dL (6.3-8.3) 02/26/19 21:44 Albumin 4.3 g/dL (3.5-5.0) 02/26/19 21:44 Globulin 3.6 gm/dL (2.2-3.9) 02/26/19 21:44 Albumin/Globulin Ratio 1.2 (1.0-2.1) 02/26/19 21:44 Urine Color Straw (YELLOW) 02/26/19 21:44 Urine Clarity Clear (Clear) 02/26/19 21:44 Urine pH 7.0 (5.0-8.0) 02/26/19 21:44 Ur Specific Hume 1.004 (1.003-1.030) 02/26/19 21:44 Urine Protein 2+ mg/dL (NEGATIVE) H 02/26/19 21:44 Urine Glucose (UA) Normal mg/dL (Normal) 02/26/19 21:44 Urine Ketones Negative mg/dL (NEGATIVE) 02/26/19 21:44 Urine Blood Negative (NEGATIVE) 02/26/19 21:44 Urine Nitrate Negative (NEGATIVE) 02/26/19 21:44 Urine Bilirubin Negative (NEGATIVE) 02/26/19 21:44 Urine Urobilinogen Normal mg/dL (0.2-1.0) 02/26/19 21:44 Ur Leukocyte Esterase Neg Cole/uL (Negative) 02/26/19 21:44 Urine WBC (Auto) < 1 /hpf (0-5) 02/26/19 21:44 Urine RBC (Auto) < 1 /hpf (0-3) 02/26/19 21:44 O2 Sat by Pulse Oximetry: 100 (ON RA) Pulse Ox Interpretation: Normal - CT Scan/US CT head Other Rad Studies (CT/US): Read By Radiologist, Radiology Report Reviewed CT/US Interpretation: CT SCAN OF THE BRAIN WITHOUT IV CONTRAST. CLINICAL INDICATION: Rule out intracranial hemorrhage. TECHNIQUE: Axial and reformatted sagittal and coronal images of the brain obtained without IV contrast administration. Findings: Minimal chronic ischemic white matter disease. Air- fluid levels in the frontal sinuses and right sphenoid sinus suggestive of acute sinusitis. Moderate chronic mucosal inflammatory of the ethmoid air cells. Normal size of the ventricles and extra-axial spaces for the patient's age. Normal white matter tracts of the supratentorial brain. Normal basal ganglia and thalami. Normal brainstem. Normal cerebellum. There is no demonstrated extra-axial, intraparenchymal, or intraventricular hemorrhage. There are no findings of an acute ischemic infarction. Normal calvarium. There is no demonstrated fracture. Normal soft tissue structures. Normal remaining visualized paranasal sinuses. IMPRESSION: Minimal chronic ischemic white matter disease. Chronic ethmoid sinusitis. Acute bilateral frontal and right sphenoid sinusitis. . Electronically signed on February 27, 2019 12:25:15 AM EDT by: Babak Foster M.D., Certified by ABR, MSK, Neuroradiology. CT abd/pelvis Other Rad Studies (CT/US): Read By Radiologist, Radiology Report Reviewed CT/US Interpretation: CT SCAN OF THE ABDOMEN AND PELVIS WITH CONTRAST. CLINICAL HISTORY: Right lower quadrant tenderness. TECHNIQUE: Multiple axial and coronal CT images were obtained through the abdomen and pelvis after administration of intravenous contrast material. COMMENTS: Bilateral basilar subsegmental atelectatic pulmonary changes. Distended bladder suggestive of mild retention. Mild heterogeneous nephrogram in the upper pole of the right kidney suggestive of uncomplicated pyelonephritis without fluid collection or drainable abscess formation. No stone obstruction or hydronephrosis is identified. Moderate amount of fecal residue in the large bowel suggestive moderate constipation. Calcified atheromatous plaques of the abdominal aorta and its branches. The liver is of uniform attenuation without mass or defect. There is no intra or extrahepatic biliary ductal dilatation. The spleen is normal. The gallbladder is within normal limits. The pancreas is of normal contour and attenuation characteristics. There is no evidence of adrenal mass. There is no evidence of renal or ureteral mass. No renal or ureteral calculi are identified. There is no hydroureter or hydronephrosis. No evidence for appendicitis. There is no bowel wall thickening. No evidence for small or large bowel obstruction. There is no evidence of abdominal ascites or lymphadenopathy. There is no evidence of intrinsic or extrinsic bladder mass. There is no pelvic ascites or lymphadenopathy. Images of the lung bases show no evidence of pleural or parenchymal mass. There are no pleural effusions. The bony structures are free of lytic or blastic lesions. IMPRESSION: Bilateral basilar subsegmental atelectatic pulmonary changes. Distended bladder suggestive of mild retention. Mild heterogeneous nephrogram in the upper pole of the right kidney suggestive of uncomplicated pyelonephritis without fluid collection or drainable abscess formation. No stone obstruction or hydronephrosis is identified. Moderate amount of fecal residue in the large bowel suggestive moderate constipation. Calcified atheromatous plaques of the abdominal aorta and its branches. Thank you for your kind referral of this patient. . Electronically signed on February 27, 2019 12:32:39 AM EDT by: Babak Foster M.D., Certified by STERLING, K, Neuroradiology. Medical Decision Making Medical Decision Making: Plan: * CT abd/pelvis * CT head * EKG * Labs * UA Disposition - Disposition Referrals: Alissa Escobar MD [Staff Provider] - Disposition: HOME/ ROUTINE Disposition Time: 00:35 Condition: GOOD Additional Instructions: RIGO STACK, thank you for letting us take care of you today. The emergency medi kaiden care you received today was directed at your acute symptoms. If you were prescribed any medication, please fill it and take as directed. It may take several days for your symptoms to resolve. Return to the Emergency Department if your symptoms worsen, do not improve, or if you have any other problems. Please contact your doctor or call one of the physicians/clinics you have been referred to that are listed on the Patient Visit Information form that is included in your discharge packet. Bring any paperwork you were given at discharge with you along with any medications you are taking to your follow up visit. Our treatment cannot replace ongoing medical care by a primary care provider outside of the emergency department. Thank you for allowing the [facility] team to be part of your care today. Follow up with your primary care doctor in 2-3 days for re-evaluation and further management. Prescriptions: Azithromycin [Zithromax] 250 mg PO DAILY #6 tab Docusate [Colace] 100 mg PO Q8 PRN #20 cap PRN Reason: Constipation Instructions: High Blood Pressure in Adults, Constipation, Adult (DC), High Fiber Diet Forms: [employer] (Indonesian) - Clinical Impression Clinical Impression: Constipation, Hypertension - Scribe Statement The provider has reviewed the documentation as recorded by the Scribe Koby Calhoun All medical record entries made by the Scribe were at my direction and personally dictated by me. I have reviewed the chart and agree that the record accurately reflects my personal performance of the history, physical exam, medical decision making, and the department course for this patient. I have also personally directed, reviewed, and agree with the discharge instructions and disposition.
[2019-02-27 01:14] VITALS: BP 131/60; PULSE 65; RESP 20; TEMP 97.7; O2SAT 97
--- NOTE | 2019-02-27 08:23 | CT ---
Date of service: 02/26/2019 PROCEDURE: CT HEAD WITHOUT CONTRAST. HISTORY: Hypertension. Evaluate for intracranial hemorrhage. COMPARISON: None available. TECHNIQUE: Axial computed tomography images were obtained through the head/brain without intravenous contrast. Radiation dose: Total exam DLP = 1116.51 mGy-cm. This CT exam was performed using one or more of the following dose reduction techniques: Automated exposure control, adjustment of the mA and/or kV according to patient size, and/or use of iterative reconstruction technique. FINDINGS: HEMORRHAGE: No intracranial hemorrhage. BRAIN: No mass effect or edema. Scattered focal lucencies in the subcortical and periventricular white matter suggestive for chronic microvascular ischemic change. Focal lacunar infarct extending from the posterior limb of the right internal capsule superiorly to the beaver radiata. Right basal ganglia lacunar infarct. Bilateral basal ganglia calcifications. Punctate left basal ganglia lacunar infarct. Diffuse generalized parenchymal atrophy. VENTRICLES: Unremarkable. No hydrocephalus. CALVARIUM: Unremarkable. PARANASAL SINUSES: Prominent mucosal thickening of the sphenoid sinus and ethmoid air cells. MASTOID AIR CELLS: Unremarkable as visualized. No inflammatory changes. OTHER FINDINGS: Intracranial arterial calcifications. IMPRESSION: No acute intracranial abnormality. Bilateral basal ganglia lacunar infarcts. Additional small lacunar infarct extending from the posterior limb of the right internal capsule to the beaver radiata. Sinus mucosal disease. Diffuse generalized parenchymal atrophy. If symptoms persists, consider correlation with MRI. A preliminary report was generated at 12:25 a.m. on 02/27/[address] Babak Foster from [employer].
--- NOTE | 2019-02-27 11:16 | CT ---
Date of service: 02/26/2019 PROCEDURE: CT Abdomen and Pelvis with contrast HISTORY: RLQ tenderness COMPARISON: None available. TECHNIQUE: Contrast dose: 100 mL Visipaque 320 IV Radiation dose: Total exam DLP = 986.46 mGy-cm. This CT exam was performed using one or more of the following dose reduction techniques: Automated exposure control, adjustment of the mA and/or kV according to patient size, and/or use of iterative reconstruction technique. FINDINGS: LOWER THORAX: Bibasilar atelectasis. No visible pleural effusion or pneumothorax. 7 mm partially calcified nodule noted right lung base. Coronary artery calcifications. Atherosclerotic calcifications of the aorta. Heart size appears top normal. LIVER: Hypoattenuation of the liver compatible with hepatic steatosis. GALLBLADDER AND BILE DUCTS: Unremarkable. PANCREAS: Unremarkable. SPLEEN: 9 mm probable splenule. Otherwise unremarkable. ADRENALS: Bilateral adrenal gland hypertrophy. KIDNEYS AND URETERS: Region of diminished enhancement identified involving the right upper pole kidney which may reflect pyelonephritis. Differential considerations include sequela of vascular insults/infarct or infiltrating process. No hydronephrosis or obstructing calculus identified. VASCULATURE: No aortic aneurysm. Dense atherosclerotic calcifications of the aorta and branches. BOWEL: Stomach is nondistended. Lack of oral contrast limits evaluation for bowel pathology. Bowel loops appear within normal limits of caliber without evidence of obstruction. Moderate diffuse constipation. APPENDIX: The appendix appears within normal limits of caliber. No secondary signs of acute appendicitis. PERITONEUM: No significant free fluid. No definite free air. LYMPH NODES: No bulky adenopathy identified. BLADDER: Urinary bladder distension. REPRODUCTIVE: The prostate gland measures approximately 3.1 x 3.8 cm. BONES: Degenerative changes. OTHER FINDINGS: None. IMPRESSION: Region of diminished enhancement identified involving the right upper pole kidney which may reflect pyelonephritis. Differential considerations include sequela of vascular insults/infarct or infiltrating process. Hypoattenuation of the liver compatible with hepatic steatosis. Moderate diffuse constipation. Bibasilar atelectasis. 7 mm partially calcified nodule noted right lung base. Preliminary impression was provided by [employer].
== END 2019-02-27 01:14 | disposition home or self-care (01) ==
LOC: C.ER 20:23
DX: K59.00 Constipation, unspecified (principal); I10 Essential (primary) hypertension; E11.9 Type 2 diabetes mellitus without complications; Z72.0 Tobacco use
CPT/HCPCS: 70450; 74177; 80053; 81001; 84484; 85025; 99284; Q9967

== ENCOUNTER 2019-03-25 14:19 | Emergency (ER) | payer SELFPAY ==
[2019-03-25 14:20] VITALS: BMI 22.4
[2019-03-25 14:28] VITALS: TEMP 99.3
[2019-03-25 14:44] VITALS: O2SAT 98
--- NOTE | 2019-03-25 14:44 | C.PDOC ---
History Of Present Illness 68 y/o male, with history of hypertension and diabetes, comes in to ED reportedly having hiccups for the last 5 days. States that sometimes it feels like a choking sensation. Patient was seen by his PMD and received unknown medications. He denies any fever, chills, SOB, cough, or other complaints. Time Seen by Provider: 03/25/19 14:31 Chief Complaint (Nursing): Cough, Cold, Congestion History Per: Patient History/Exam Limitations: no limitations Onset/Duration Of Symptoms: Days Current Symptoms Are (Timing): Still Present Past Medical History Reviewed: Historical Data, Nursing Documentation, Vital Signs Vital Signs: Last Vital Signs Temp 99.3 F 03/25/19 14:26 Pulse 74 03/25/19 14:26 Resp 20 03/25/19 14:26 BP 221/76 H 03/25/19 14:26 Pulse Ox 98 03/25/19 14:26 Primary Care Provider: Tj Escobar - Medical History PMH: Diabetes, HTN Family History: States: No Known Family Hx - Social History Hx Tobacco Use: Yes Hx Alcohol Use: No Hx Substance Use: No Review Of Systems Except As Marked, All Systems Reviewed And Found Negative. Constitutional: Negative for: Fever, Chills Cardiovascular: Negative for: Chest Pain Respiratory: Positive for: Other (hiccups). Negative for: Cough, Shortness of Breath Gastrointestinal: Negative for: Nausea, Vomiting Physical Exam - Physical Exam Appears: Non-toxic, No Acute Distress Skin: Warm, Dry Head: Normacephalic Eye(s): bilateral: Normal Inspection Oral Mucosa: Moist Throat: Normal, No Erythema Neck: Supple Cardiovascular: Rhythm Regular, No Murmur Respiratory: Normal Breath Sounds, No Rales, No Rhonchi, No Wheezing Gastrointestinal/Abdominal: Soft, No Tenderness Extremity: Bilateral: Normal Color And Temperature, Normal ROM Neurological/Psych: Oriented x3, Normal Speech ED Course And Treatment O2 Sat by Pulse Oximetry: 98 (RA) Pulse Ox Interpretation: Normal Medical Decision Making Medical Decision Making: ro htn urgency vs emergnecy, metabolic cardiac etiology of hiccups. Plan: --EKG --Labs --Chest XR --Thorazine Patient admits to prior lab tests that showed elevated blood pressure. He is now refusing lab studies. refuses er w/u. asks for im medication and reassess pt observed in er hiccups stopped asking for dc. Disposition - Disposition Disposition: HOME/ ROUTINE Disposition Time: 15:00 Condition: STABLE Additional Instructions: you are refusing any further workup. return to any er with worsening. Prescriptions: chlorproMAZINE [chlorPROMAZINE HCL] 25 mg PO Q8 PRN #9 tab PRN Reason: Hiccups Instructions: Hiccups Forms: [facility] ([place]rainian) - Clinical Impression Clinical Impression: Hiccups - Scribe Statement The provider has reviewed the documentation as recorded by the Mayelin Ye Provider Attestation: All medical record entries made by the Mayelin were at my direction and personally dictated by me. I have reviewed the chart and agree that the record accurately reflects my personal performance of the history, physical exam, medical decision making, and the department course for this patient. I have also personally directed, reviewed, and agree with the discharge instructions and disposition.
[2019-03-25 15:43] VITALS: BP 138/55; PULSE 74; RESP 19
--- NOTE | 2019-03-25 18:56 | RAD ---
Date of service: 03/25/2019 PROCEDURE: CHEST RADIOGRAPH, 1 VIEW HISTORY: chest pain COMPARISON: None available. FINDINGS: LUNGS: Clear. PLEURA: No pneumothorax or pleural fluid seen. CARDIOVASCULAR: No aortic atherosclerotic calcification present. Normal. OSSEOUS STRUCTURES: No significant abnormalities. VISUALIZED UPPER ABDOMEN: Normal. OTHER FINDINGS: None. IMPRESSION: No active disease.
== END 2019-03-25 15:43 | disposition home or self-care (01) ==
LOC: C.ER 14:19
DX: R06.6 Hiccough (principal)
CPT/HCPCS: 71045; 96372; 99284; J3230